=== PATIENT | male | born 1950 | race Caucasian/White ===

== ENCOUNTER → 2018-10-30 | Outpatient (CLI) | payer MEDICARE | LOC: CARD 11:22 | PROVIDERS: ATTEND Family Medicine | DX: I42.0 Dilated cardiomyopathy (principal); I08.0 Rheumatic disorders of both mitral and aortic valves | CPT/HCPCS: 93306 ==

== ENCOUNTER 2018-12-08 18:57 | Emergency (ER) | payer MEDICARE ==
[~2018-12-08] VITALS: Ht 175.3 cm; Wt 81.6 kg
--- NOTE | 2018-12-08 19:12 | ED Integumentary General ---
General Stated Complaint: RT HAND SWELLING/ REDNESS Source: patient, spouse Exam Limitations: no limitations History of Present Illness Date Seen by Provider: December 08, 2018 Time Seen by Provider: 19:00 Initial Comments The patient presents to ER by private conveyance with his chief complaint last 2 days she's had progressively worsening pustules on his right hand dorsal side of his fourth and fifth digit proximal phalanges. He doesn't redness and swelling going into his hand. He also has another nodule in his armpit that has opened up pustule has a little bit of pain and swelling. He's been putting Prid on it and it is not getting better. He has not been on antibiotics. He went to urgent care today and they said he might need some IV antibiotics and sent him over to the emergency room. He's having no fevers chills shortness of breath nausea vomiting or diarrhea. Allergies and Home Medications Allergies Coded Allergies: No Known Drug Allergies (Unverified , 12/08/18) Patient Home Medication List Home Medication List Reviewed: Yes Review of Systems Review of Systems Constitutional: No chills, No fever, No malaise EENTM: No ear discharge, No ear pain Respiratory: No cough, No dyspnea on exertion Cardiovascular: No chest pain, No palpitations Gastrointestinal: No abdominal pain, No nausea, No vomiting Past Vbhhuoi-Mkfsug-Vykkxi Hx Patient Social History Alcohol Use: Denies Use Recreational Drug Use: No Smoking Status: Former Smoker Type Used: Smokeless Tobacco (pack-a-day) Recent Foreign Travel: No Contact w/Someone Who Travel: No Physical Exam Vital Signs Vital Signs - First Documented 12/08/18 19:13 Temp 98.1 Pulse 102 Resp 22 B/P (MAP) 118/84 (95) O2 Delivery Room Air Capillary Refill : General Appearance: WD/WN, no apparent distress HEENT: PERRL/EOMI, normal ENT inspection Cardiovascular: normal peripheral pulses, regular rate, rhythm, no edema Respiratory: no respiratory distress, no accessory muscle use Extremities: normal range of motion, non-tender, normal capillary refill Neurologic/Psychiatric: no motor/sensory deficits, alert, normal mood/affect, oriented x 3 Skin: other (to macerated, swollen erythematous mildly indurated wounds on the dorsum of the right hand fourth and fifth digit with possible fluctuance palpated underneath. There is a right axillary anterior nodule with Hernandez, pointing vesicle. About a 2 cm erythematous indurated base with some fluctuance.) Procedures/Interventions I&D #1: Site: anterior right axilla Blade Size: 15 I & D Procedure: betadine prep Progress Wound was cleaned thoroughly using Betadine and then infiltrated with 2 cc of 1% lidocaine without epinephrine. When the wound was determined to be numb we opened in a cross stubbs fashion broke up loculations and extruded about 1-2 cc of thick white purulence. Patient tolerated procedure well. I&D #2: Site: right hand fourth digit Blade Size: 15 I & D Procedure: betadine prep Progress Patient's wound was thoroughly soaked with Betadine and then infiltrated with 1 cc of 1% lidocaine without epinephrine. The wound was already deroofed after we cleaned the scab off and was explored with a probe but no purulence was seen. Only serosanguineous discharge. Progress/Results/Core Measures Results/Orders My Orders Orders - BRIAN MITCHELL Wound Culture (12/08/18 19:12) Hsv 1&2 Pcr (Blood/Fluid) (12/08/18 19:12) Lidocaine 1% Inj 20 Ml (Xylocaine 1% Inj (12/08/18 19:15) Ceftriaxone For Im Use (Rocephin For Im (12/08/18 19:45) Lidocaine 1% Inj 20 Ml (Xylocaine 1% Inj (12/08/18 19:45) Vital Signs/I&O 12/08/18 19:13 Temp 98.1 Pulse 102 Resp 22 B/P (MAP) 118/84 (95) O2 Delivery Room Air Progress Progress Note : Time: 19:10 Progress Note Looking at his hand it's hard to tell if this is herpetic mikel versus abscesses. The fact that there is erythema in the fingers and a little bit in the dorsum of the hand but none on the arm and a distal ureter lymph node and/or abscess in his right axilla make a current him some antibiotics, open and drain and dress his wounds. He is not really having significant pain. He is not diabetic. He requests that whatever pill we put him on something he can chew to swallow. He had heat stroke a few years ago and makes it hard for him to swallow tablets. Because of the widespread nature we'll go ahead and try and attempt to collect a culture of the axillary vesicle which has not ruptured yet and check for HSV 1 and 2. Departure Impression Primary Impression: Abscess of finger of right hand Additional Impression: Abscess of axilla, right Disposition: 01 HOME, SELF-CARE Condition: Stable Departure-Patient Inst. Decision time for Depature: 19:39 Referrals: SELFSONU MD (PCP/Family) Primary Care Physician Patient Instructions: Abscess Incision and Drainage (DC) Add. Discharge Instructions: The antibiotics we gave you tonight we'll cover you through tomorrow. Tomorrow morning you can start the Bactrim twice a day for the next week. Use warm compresses or heating pads to help the wounds and the pain. Use Tylenol 1000 mg in addition to ibuprofen 800 mg every 8 hours each. Next week we should have the results of the wound culture and herpes test. If this is a viral illness such as herpetic mikel than the antivirals will help. You may go ahead and start the antivirals twice a day for the next week. Scripts Sulfamethoxazole/Trimethoprim (Sulfamethoxazole-Tmp Susp 200MG/40MG/5ML) 473 Ml Oral.susp 160 MG PO BID for 7 Days, #300 ML 0 Refills DOSE IN TRIMETHOPRIM Prov: BRIAN MITCHELL 12/08/18 Acyclovir (Acyclovir) 200 Mg/5 Ml Oral.susp 800 MG PO BID for 7 Days, #300 ML 0 Refills Prov: BRIAN MITCHELL 12/08/18 BRIAN MITCHELL December 08, 2018 19:12
[2018-12-08] MEDS ORDERED: LIDOCAINE 1% INJ 20 ML 20 ML VIAL INJ ONE ×2 (19:15→19:45)
[2018-12-08] MEDS ORDERED: SULF473O9 PO (19:43)
[2018-12-08] MEDS ORDERED: ACYC200O4 PO (19:43)
[2018-12-08] MEDS ORDERED: cefTRIAXone 1,000 MG/2.86 ml vial (IM ONLY) IM ONE (19:45)
[2018-12-08 19:55] VITALS: BP 134/75
== END 2018-12-08 19:55 | disposition home or self-care (01) ==
LOC: EDUNIT# 18:57 → ER FS 18:59
DX: L02.511 Cutaneous abscess of right hand (principal); L02.411 Cutaneous abscess of right axilla; Z87.891 Personal history of nicotine dependence
CPT/HCPCS: 87070; 87077; 87186; 87205; 87254; 96372; 99284

== ENCOUNTER 2021-06-07 14:20 | Inpatient (IN) | payer MEDICARE ==
[~2021-06-07] VITALS: Ht 175 cm; Wt 81.3 kg
[~2021-06-07 14:20] MED LIST: ACYC200O4 PO; SULF473O9 PO
--- OUTSIDE RECORDS SUMMARY | 2021-06-07 14:26 | XMS REPORT | Clinical Summary ---
Author Author [facility] Organization [facility] Address Unknown Phone Unavailable Care Team Providers Care Bibliographic Services Specialist Name Role Phone PCP Unavailable Allergies Not on File Medications Not on file Active Problems Not on file Social History Date Tobacco Use Types Packs/Day Years Used Never Assessed Sex Assigned at Date Recorded Not on file Last Filed Vital Signs Not on file Plan of Treatment Health Maintenance Due Date Last Done Comments Hepatitis C Screen 1950 Td/Tdap# 1950 COVID-19 Vaccine (1) 1962 Colorectal Screening via 02/09/2000 Colonoscopy Zoster Vaccine# (1 of 2) 02/09/2000 Advance Care Plan 2015 Conversation Needed # Fall Risk Assessment # 2015 Pneumococcal Vaccine: 65+ 2015 Years (1 of 1 - PPSV23) Influenza Vaccine (#1) 2021 Results Not on filefrom Last 3 Months
[2021-06-07 14:59] LABS: BASOPHILS % (AUTO) 0 % (0-10); EOSINOPHILS # (AUTO) 0.2 10^3/uL (0.0-0.3); EOSINOPHILS % (AUTO) 3 % (0-10); HEMATOCRIT 39 % (40-54); HEMOGLOBIN 12.3 g/dL (13.3-17.7); LYMPHOCYTES # (AUTO) 1.3 10^3/uL (1.0-4.0); LYMPHOCYTES % (AUTO) 18 % (12-44); MEAN CORPUSCULAR HEMOGLOBIN 30 pg (25-34); MEAN CORPUSCULAR HGB CONC 32 g/dL (32-36); MEAN CORPUSCULAR VOLUME 95 fL (80-99); MEAN PLATELET VOLUME 10.9 fL (9.0-12.2); MONOCYTES # (AUTO) 0.6 10^3/uL (0.0-1.0); MONOCYTES % (AUTO) 8 % (0-12); NEUTROPHILS # (AUTO) 5.2 10^3/uL (1.8-7.8); NEUTROPHILS % (AUTO) 71 % (42-75); PLATELET COUNT 184 10^3/uL (130-400); WHITE BLOOD COUNT 7.3 10^3/uL (4.3-11.0)
[2021-06-07] MEDS ORDERED: NS IV 1000 ML 1,000 ML IV SCH (15:00)
[2021-06-07 15:05] LABS: POTASSIUM 4.1 MMOL/L (3.6-5.0)
[2021-06-07 15:06] LABS: CALCIUM 9.1 MG/DL (8.5-10.1)
[2021-06-07 15:07] LABS: INR 1.1 (0.8-1.4); PROTHROMBIN TIME PATIENT 14.6 SEC (12.2-14.7)
[2021-06-07 15:08] LABS: TOTAL PROTEIN 6.9 GM/DL (6.4-8.2)
[2021-06-07 15:09] LABS: BILIRUBIN,TOTAL 0.3 MG/DL (0.1-1.0)
[2021-06-07 15:11] LABS: CREATININE SERUM 1.99 MG/DL (0.60-1.30)
--- NOTE | 2021-06-07 15:35 | Diagnostic Imaging Report ---
EXAMINATION: Chest 1 view. HISTORY: Sepsis. COMPARISON: None available. FINDINGS: Heart size and pulmonary vasculature are upper limits of normal. Surgical changes from CABG. There are bibasilar interstitial opacities. No pleural effusion or pneumothorax. The osseous structures are intact. IMPRESSION: Bibasilar atelectasis or consolidation. Dictated by: Dictated on workstation # [id number]
--- NOTE | 2021-06-07 15:38 | ED Respiratory ---
General Chief Complaint: Respiratory Problems Stated Complaint: SOA,COUGH,FEVER,SORE THROAT,CHILLS Nursing Triage Note: Patient complains of SOA x's 5 days. Reports occurs mostly with activity. Denies covid exposure. Brought to room 10 via . Source: patient Exam Limitations: no limitations History of Present Illness Date Seen by Provider: Jun 07, 2021 Time Seen by Provider: 14:40 Initial Comments Patient is a 71-year-old male who presents to the emergency department today with a chief complaint of about 5 days of worsening shortness of breath, cough, sore throat and headache, some body aches and a little nausea. Patient is not Covid vaccinated. He does live with his is a diabetic and has had her Covid vaccination. He states he quit smoking in 2000. He does have a history of COPD and frequently has to use inhalers and a nebulizer. He states his cough is basically nonproductive. He does not recall that he has been around anybody with Covid symptoms. He denies earache, chest pain. He has a history of quadruple bypass. He denies abdominal pain, problems with dysuria, urgency or frequency. He denies diarrhea, black or bloody stool. He denies swelling in his legs. He is on Lasix and carvedilol and lisinopril. He himself is not diabetic. He lives with 2 of his children and he states that he believes that they are Covid vaccinated. He does not recall any fevers but states that he has been a little chilled. He has been using his inhalers and his nebulizer without relief of symptoms. All other review of systems reviewed and negative except as stated. Timing/Duration: other (5 days) Severity: moderate Modifying Factors: Improves With Albuterol Inhaler, Improves With Albuterol Nebulizer Associated Symptoms: cough, headache, shortness of breath, sore throat (with cough) Allergies and Home Medications Allergies Coded Allergies: No Known Drug Allergies (Unverified , 12/08/18) Patient Home Medication List Home Medication List Reviewed: Yes Acyclovir (Acyclovir) 200 Mg/5 Ml Oral.susp, 800 MG PO BID Prescribed by: BRIAN MITCHELL on 12/08/181942 Sulfamethoxazole/Trimethoprim (Sulfamethoxazole-Tmp Susp 200MG/40MG/5ML) 473 Ml Oral.susp, 160 MG PO BID Prescribed by: BRIAN MITCHELL on 12/08/181942 Review of Systems Review of Systems Constitutional: see HPI EENTM: throat pain (mild with cough) Respiratory: cough, dyspnea on exertion, orthopnea, short of breath, wheezing Cardiovascular: no symptoms reported Gastrointestinal: no symptoms reported Genitourinary: no symptoms reported Musculoskeletal: muscle cramps Skin: no symptoms reported All Other Systems Reviewed Negative Unless Noted: Yes Past Yrordtm-Eurlyc-Toifjk Hx Patient Social History Tobacco Use?: No Smoking Status: Former Smoker Substance use?: No Alcohol Use?: No Alcohol type: Beer, Hard Liquor Alcohol Frequency: Rarely Pt feels they are or have been: No Past Medical History Surgery/Hospitalization HX: 2020- 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 Physical Exam Vital Signs - First Documented 06/07/21 14:36 FiO2 98 Capillary Refill : Less Than 3 Seconds Height: 5'9.00" Weight: 180lbs. oz. 81.034595dz; 28.00 BMI Method:Stated General Appearance: WD/WN, no apparent distress Eyes: Bilateral Eye Normal Inspection, Bilateral Eye PERRL, Bilateral Eye EOMI HEENT: PERRL/EOMI, pharynx normal Neck: normal inspection Respiratory: wheezing (Diffuse inspiratory and expiratory wheezes noted, room air sats were 84 to 85% on room air on arrival), other (He is quite tachypneic in the low 30s) Cardiovascular: regular rate, rhythm (70's) Gastrointestinal: normal bowel sounds, non tender, soft Extremities: normal range of motion, non-tender, normal inspection, no pedal edema Neurologic/Psychiatric: alert, normal mood/affect, oriented x 3 Skin: normal color, warm/dry Focused Exam Lactate Level 06/07/21 14:40: Lactic Acid Level 0.85 Lactic Acid Level Laboratory Tests Test 06/07/21 14:40 Lactic Acid Level 0.85 MMOL/L (0.50-2.00) Progress/Results/Core Measures Suspected Sepsis Recent Fever Within 48 Hours: No Infection Criteria Present: Suspected New Infection New/Unexplained Altered Menta: No Within 3hrs of presentation: Admin fluids, Admin ABX, Blood cultures prior to ABX's, Lactate level SIRS Temperature: Pulse: 69 Respiratory Rate: 24 Laboratory Tests 06/07/21 14:40: White Blood Count 7.3 Blood Pressure 110 /56 Mean: 74 06/07/21 14:40: Lactic Acid Level 0.85 Laboratory Tests 06/07/21 14:40: Creatinine 1.99H, INR Comment 1.1, Platelet Count 184, Total Bilirubin 0.3 Results/Orders Lab Results Laboratory Tests Test 06/07/21 14:40 Range/Units White Blood Count 7.3 4.3-11.0 10^3/uL Red Blood Count 4.07 L 4.30-5.52 10^6/uL Hemoglobin 12.3 L 13.3-17.7 g/dL Hematocrit 39 L 40-54 % Mean Corpuscular Volume 95 80-99 fL Mean Corpuscular Hemoglobin 30 25-34 pg Mean Corpuscular Hemoglobin Concent 32 32-36 g/dL Red Cell Distribution Width 12.4 10.0-14.5 % Platelet Count 184 130-400 10^3/uL Mean Platelet Volume 10.9 9.0-12.2 fL Immature Granulocyte % (Auto) 0 % Neutrophils (%) (Auto) 71 42-75 % Lymphocytes (%) (Auto) 18 12-44 % Monocytes (%) (Auto) 8 0-12 % Eosinophils (%) (Auto) 3 0-10 % Basophils (%) (Auto) 0 0-10 % Neutrophils # (Auto) 5.2 1.8-7.8 10^3/uL Lymphocytes # (Auto) 1.3 1.0-4.0 10^3/uL Monocytes # (Auto) 0.6 0.0-1.0 10^3/uL Eosinophils # (Auto) 0.2 0.0-0.3 10^3/uL Basophils # (Auto) 0.0 0.0-0.1 10^3/uL Immature Granulocyte # (Auto) 0.0 0.0-0.1 10^3/uL Prothrombin Time 14.6 12.2-14.7 SEC INR Comment 1.1 0.8-1.4 Activated Partial Thromboplast Time 30 24-35 SEC Sodium Level 142 135-145 MMOL/L Potassium Level 4.1 3.6-5.0 MMOL/L Chloride Level 105 98-107 MMOL/L Carbon Dioxide Level 25 21-32 MMOL/L Anion Gap 12 5-14 MMOL/L Blood Urea Nitrogen 55 H 7-18 MG/DL Creatinine 1.99 H 0.60-1.30 MG/DL Estimat Glomerular Filtration Rate 33 BUN/Creatinine Ratio 28 Glucose Level 141 H 70-105 MG/DL Lactic Acid Level 0.85 0.50-2.00 MMOL/L Calcium Level 9.1 8.5-10.1 MG/DL Corrected Calcium 9.1 8.5-10.1 MG/DL Total Bilirubin 0.3 0.1-1.0 MG/DL Aspartate Amino Transf (AST/SGOT) 29 5-34 U/L Alanine Aminotransferase (ALT/SGPT) 19 0-55 U/L Alkaline Phosphatase 61 40-136 U/L C-Reactive Protein High Sensitivity 3.93 H 0.00-0.50 MG/DL Total Protein 6.9 6.4-8.2 GM/DL Albumin 4.0 3.2-4.5 GM/DL Procalcitonin 0.16 H <0.10 NG/ML SARS-CoV-2 RNA (RT-PCR) Not Detected Not Detecte My Orders Orders - HILLARY MEJIA MD Cbc With Automated Diff (06/07/21 14:52) Comprehensive Metabolic Panel (06/07/21 14:52) Blood Culture (06/07/21 14:52) Sputum Culture (06/07/21 14:52) Protime With Inr (06/07/21 14:52) Partial Thromboplastin Time (06/07/21 14:52) Chest 1 View, Ap/Pa Only (06/07/21 14:52) Ed Iv/Invasive Line Start (06/07/21 14:52) Ed Iv/Invasive Line Start (06/07/21 14:52) Vital Signs Adult Sepsis Patie Q15M (06/07/21 14:52) O2 (06/07/21 14:52) Remove Rings In Anticipation O (06/07/21 14:52) Lactic Acid Analyzer (06/07/21 14:52) Procalcitonin (Pct) (06/07/21 14:52) Hs C Reactive Protein (06/07/21 14:52) Covid 19 Inhouse Test (06/07/21 14:52) Ns Iv 1000 Ml (Sodium Chloride 0.9%) (06/07/21 15:00) Methylprednisolone Sod Succ (Solu-Medrol (06/07/21 15:45) Communication For Respiratory (06/07/21 15:46) Albuterol Pre-Mix Nebs (Rt) (Proventil (06/07/21 16:00) Svn Small Volume Nebulizer (06/07/21 15:46) Albuterol Pre-Mix Nebs (Rt) (Proventil (06/07/21 16:11) Cefepime Injection (Maxipime Injection) (06/07/21 17:15) Ed Admission (Communication) (06/07/21 17:04) Medications Given in ED Vital Signs/I&O 06/07/21 06/07/21 06/07/21 06/07/21 14:36 14:36 14:36 14:36 Temp 36.6 36.6 Pulse 69 69 Resp 22 24 B/P (MAP) 110/56 110/56 (74) Pulse Ox 98 84 98 O2 Delivery Nasal Cannula Nasal Cannula Room Air Nasal Cannula O2 Flow Rate 2.00 2.00 2.00 FiO2 98 06/08/21 00:00 Intake Total 1000 ml Balance 1000 ml Capillary Refill : Less Than 3 Seconds Blood Pressure Mean: 74 Progress Note #1: Time: 15:36 Progress Note Patient was given 4 puffs of his albuterol inhaler. He is maintaining sats at 97 on 2 L per nasal cannula. He demonstrates mild increased work of breathing overall. Respiratory rate down to 22. Covid test is still pending at this time. CBC looks normal. 1546 Covd Negative Progress Note #2: Time: 17:08 Progress Note Went in to reevaluate the patient after his hour-long albuterol treatment, waited about 20 minutes and turned down his oxygen to half a liter. Patient slowly sunk down to an oxygen saturation of 90 and increased respiratory rate up to 32-34. He was starting to feeling a little bit more distressed therefore his oxygen was bumped back up. I discussed the case with Dr. Villanueva, she recommends ABG and cefepime antibiotics, will admit. She will put in que'd orders. Plan of care communicated to the patient and his daughter who is at the bedside. All questions are sought and answered. Diagnostic Imaging Diagonstic Imaging: Xray Plain Films/CT/US/NM/MRI: chest Comments [facility]. [place], [place] NAME: RUBY OCHOA [facility] REC#: [id number] PT STATUS: REG ER : 1950 PHYSICIAN: HILLARY MEJIA MD ADMIT DATE: 06/07/21/ER Draft Date of Exam:06/07/21 CHEST 1 VIEW, AP/PA ONLY EXAMINATION: Chest 1 view. HISTORY: Sepsis. COMPARISON: None available. FINDINGS: Heart size and pulmonary vasculature are upper limits of normal. Surgical changes from CABG. There are bibasilar interstitial opacities. No pleural effusion or pneumothorax. The osseous structures are intact. IMPRESSION: Bibasilar atelectasis or consolidation. Dictated on workstation # [id number] Dict: 06/07/21 1530 Trans: 06/07/21 1535 [facility] [id number] Interpreted by: CHRISTOPHER BLACKMAN DO Electronically signed by: Critical Care Note Critical Care Start Time: 14:40 Stop Time: 16:00 Total Time (minutes) 40 minutes critical care time in the evaluation and management of this patient with respiratory distress and hypoxia. Time includes initial evaluation and treatment with supplemental oxygen, multiple breathing treatments and reevaluation's, review of his medical record, review and interpretation of laboratory studies, chest x-ray. Fluid replacement. Discussion with admitting provider. Departure Communication (Admissions) Time/Spoke to Admitting Phy: 17:05 Impression Primary Impression: Acute exacerbation of chronic obstructive pulmonary disease (COPD) Additional Impressions: Pneumonia Qualified Codes: J18.9 - Pneumonia, unspecified organism Hypoxia Disposition: ADMITTED INPATIENT Condition: Stable Admissions Decision to Admit Reason: Admit from ER (General) Decision to Admit/Date: Jun 07, 2021 Time/Decision to Admit Time: 17:08 Departure-Patient Inst. Referrals: SONU ESPINOSA MD (PCP/Family) Primary Care Physician HILLARY MEJIA MD Jun 07, 2021 15:37
[2021-06-07] MEDS ORDERED: methylPREDNISolone 125 MG (Solu-MEDROL) VIAL IVP ONE (15:45)
[2021-06-07] MEDS ORDERED: RT-ALBUTEROL SULF 2.5 MG/3 ML PRE-MIX VIAL INH ONE (16:00)
[2021-06-07] MEDS ORDERED: RT-ALBUTEROL SULF 2.5 MG/3 ML PRE-MIX VIAL ONE (16:11)
[2021-06-07] MEDS ORDERED: CEFEPIME INJECTION 2,000 MG in NS (IVPB) 50 ML IV ONE (17:15)
[2021-06-07] MEDS ORDERED: HYDROcodone/APAP 5 MG/325 MG (LORTAB) TAB PO PRN (18:00)
[2021-06-07] MEDS ORDERED: RT-ALBUTEROL/IPRATROPIUM 3 ML (DUONEB) VIAL INH SCH (18:00)
[2021-06-07] MEDS ORDERED: ONDANSETRON 4 MG/2 ML (SDV) Z0FRAN IVP PRN (18:00)
[2021-06-07] MEDS ORDERED: guaiFENesin/CODEINE (ROBITUSSIN AC) 10ML UDC PO PRN (18:00)
[2021-06-07] MEDS ORDERED: cloNIDine 0.1 MG (CATAPRES) TAB PO PRN (18:00)
[2021-06-07] MEDS ORDERED: CALCIUM CARBONATE 500 MG (TUMS) TAB.CHEW PO PRN (18:00)
[2021-06-07] MEDS ORDERED: LOPERAMIDE 2 MG (IMODIUM) TABLET PO PRN (18:00)
[2021-06-07] MEDS ORDERED: diphenhydrAMINE 25 MG TAB (BENADRYL) PO PRN (18:00)
[2021-06-07] MEDS ORDERED: ACETAMINOPHEN 500 MG TAB (TYLENOL) PO PRN (18:00)
[2021-06-07] MEDS ORDERED: MELATONIN 3 MG TABLET PO PRN (18:00)
[2021-06-07] MEDS ORDERED: DOCUSATE SODIUM 100 MG (COLACE) CAP PO PRN (18:00)
[2021-06-07] MEDS ORDERED: ONDANSETRON 4 MG (ZOFRAN) ORAL DISSOLVE TAB PO PRN (18:00)
[2021-06-07] MEDS ORDERED: ALPRAZolam 0.25 MG (XANAX) TAB PO PRN (18:00)
[2021-06-07 18:27] VITALS: BP 110/56
[2021-06-07] MEDS ORDERED: RT-ALBUTEROL SULF 2.5 MG/3 ML PRE-MIX VIAL INH PRN (18:45)
[2021-06-07] MEDS ORDERED: NS IV 1000 ML 1,000 ML ONE (18:47)
[2021-06-07] MEDS: NS IV 1000 ML 1,000 ML IV SCH (18:53)
[2021-06-07] MEDS ORDERED: RT-ALBUTEROL/IPRATROPIUM 3 ML (DUONEB) VIAL ONE (19:21)
[2021-06-07] MEDS: RT-ALBUTEROL/IPRATROPIUM 3 ML (DUONEB) VIAL INH SCH ×2 (19:24→22:47)
[2021-06-07 20:00] VITALS: BP 136/65
[2021-06-07] MEDS: SENNA W/DOCUSATE (SENOKOT S) TABLET PO SCH (20:31)
[2021-06-07] MEDS: polyethylene glycoL POWDER 17 GM (MIRALAX) PACK PO SCH (20:31)
[2021-06-07] MEDS: inSUlin ASPART (NovoLOG) 1 UNIT/0.01 ML (CHARGE PER UNIT) SC SCH (20:31)
[2021-06-07] MEDS ORDERED: CEFEPIME INJECTION 2,000 MG in NS (IVPB) 50 ML IV SCH (21:00)
[2021-06-07] MEDS: ENOXAPARIN 40 MG/0.4 ML (LOVENOX) SYR SC SCH (22:08)
[2021-06-07] MEDS: methylPREDNISolone 40 MG/ML (Solu-MEDROL) VIAL IV SCH (22:08)
[2021-06-08] MEDS: CEFEPIME 1,000 MG/NS 50 ML IVPB IV SCH ×6 (00:09→18:00)
[2021-06-08 00:10] VITALS: BP 129/65
[2021-06-08] MEDS: RT-ALBUTEROL/IPRATROPIUM 3 ML (DUONEB) VIAL INH SCH ×6 (01:59→21:18)
[2021-06-08 04:00] VITALS: BP 116/69
[2021-06-08] MEDS: methylPREDNISolone 40 MG/ML (Solu-MEDROL) VIAL IV SCH ×4 (04:56→21:28)
[2021-06-08] MEDS: inSUlin ASPART (NovoLOG) 1 UNIT/0.01 ML (CHARGE PER UNIT) SC SCH ×4 (04:56→21:25)
[2021-06-08 06:30] LABS: BASOPHILS % (AUTO) 0 % (0-10); EOSINOPHILS % (AUTO) 0 % (0-10); HEMATOCRIT 40 % (40-54); HEMOGLOBIN 12.3 g/dL (13.3-17.7); LYMPHOCYTES # (AUTO) 0.4 10^3/uL (1.0-4.0); LYMPHOCYTES % (AUTO) 8 % (12-44); MEAN CORPUSCULAR HEMOGLOBIN 30 pg (25-34); MEAN CORPUSCULAR HGB CONC 31 g/dL (32-36); MEAN CORPUSCULAR VOLUME 98 fL (80-99); MEAN PLATELET VOLUME 10.7 fL (9.0-12.2); MONOCYTES # (AUTO) 0.1 10^3/uL (0.0-1.0); MONOCYTES % (AUTO) 1 % (0-12); NEUTROPHILS # (AUTO) 4.3 10^3/uL (1.8-7.8); NEUTROPHILS % (AUTO) 90 % (42-75); PLATELET COUNT 168 10^3/uL (130-400); WHITE BLOOD COUNT 4.8 10^3/uL (4.3-11.0)
[2021-06-08 06:51] LABS: ALBUMIN 3.7 GM/DL (3.2-4.5); BILIRUBIN,TOTAL 0.3 MG/DL (0.1-1.0); CALCIUM 8.4 MG/DL (8.5-10.1); CREATININE SERUM 1.4 MG/DL (0.60-1.30); TOTAL PROTEIN 6.6 GM/DL (6.4-8.2)
[2021-06-08 06:57] LABS: LYMPHOCYTES % (MANUAL) 5 %; MONOCYTES % (MANUAL) 1 %; NEUTROPHILS % (MANUAL) 94 %; RBC MORPH NORMAL; TOXIC GRANULATION/VACUOLAZATIO 2+
[2021-06-08 06:59] LABS: POTASSIUM 5.1 MMOL/L (3.6-5.0)
[2021-06-08 08:00] VITALS: BP 114/61
[2021-06-08] MEDS: SENNA W/DOCUSATE (SENOKOT S) TABLET PO SCH ×2 (08:58→21:27)
[2021-06-08] MEDS: polyethylene glycoL POWDER 17 GM (MIRALAX) PACK PO SCH ×2 (08:58→21:27)
[2021-06-08] MEDS: NS IV 1000 ML 1,000 ML IV SCH (08:58)
--- NOTE | 2021-06-08 10:38 | Consultation-Cardiology ---
HPI-Cardiology Cardiology Consultation Date of Consultation 06/08/21 Date of Admission Time Seen by Provider: 10:32 Indication: CAD HPI Patient is a 71 y/o male, history of CAD, CHF, HTN, HLP, COPD,extobaccoism. Primary egg tester is Dr. Madera in [place]. Presented to the ER with complaints fever, productive cough and dyspnea for the past week. Dx with pneumonia and started on antibiotic and steroid. Denies any chest pain, reports dyspnea improving. Denies any dizziness or lightheadedness. Reports routinely follows with his egg tester and underwent echo within the last 6 months, and underwent stress test within the last year. Home Medications & Allergies Allergies: Coded Allergies: No Known Drug Allergies (Unverified , 12/08/18) Home Medication List Reviewed: Yes SBA-Dwopdd-Tjrbld Hx Patient Social History Marital Status: Employed/Student: retired Smoking Status: Former Smoker Type Used: Cigarettes, Smokeless Tobacco 2nd Hand Smoke Exposure: No Have you traveled recently?: No Alcohol Use?: Yes Past Medical History CAD, CHF, HTN, HLP Review of Systems-General Review of Systems Constitutional: see HPI, fever, malaise EENTM: see HPI, throat pain (mild with cough); No blurred vision, No double vision Respiratory: cough, dyspnea on exertion, orthopnea, short of breath, wheezing Cardiovascular: no symptoms reported, see HPI; No chest pain; Hx of Intervention; No syncope; vascular heart diseas Gastrointestinal: no symptoms reported Genitourinary: no symptoms reported Musculoskeletal: muscle cramps Skin: no symptoms reported All Other Systems Reviewed Negative Unless Noted: Yes Reviewed Test Results Reviewed Test Results Lab Laboratory Tests 06/07/21 14:40: White Blood Count 7.3, Red Blood Count 4.07L, Hemoglobin 12.3L, Hematocrit 39L, Mean Corpuscular Volume 95, Mean Corpuscular Hemoglobin 30, Mean Corpuscular Hemoglobin Concent 32, Red Cell Distribution Width 12.4, Platelet Count 184, Mean Platelet Volume 10.9, Immature Granulocyte % (Auto) 0, Neutrophils (%) (Auto) 71, Lymphocytes (%) (Auto) 18, Monocytes (%) (Auto) 8, Eosinophils (%) (Auto) 3, Basophils (%) (Auto) 0, Neutrophils # (Auto) 5.2, Lymphocytes # (Auto) 1.3, Monocytes # (Auto) 0.6, Eosinophils # (Auto) 0.2, Basophils # (Auto) 0.0, Immature Granulocyte # (Auto) 0.0, Prothrombin Time 14.6, INR Comment 1.1, Activated Partial Thromboplast Time 30, Sodium Level 142, Potassium Level 4.1, Chloride Level 105, Carbon Dioxide Level 25, Anion Gap 12, Blood Urea Nitrogen 55H, Creatinine 1.99H, Estimat Glomerular Filtration Rate 33, BUN/Creatinine Ratio 28, Glucose Level 141H, Lactic Acid Level 0.85, Calcium Level 9.1, Corrected Calcium 9.1, Total Bilirubin 0.3, Aspartate Amino Transf (AST/SGOT) 29, Alanine Aminotransferase (ALT/SGPT) 19, Alkaline Phosphatase 61, C-Reactive Protein High Sensitivity 3.93H, Total Protein 6.9, Albumin 4.0, Procalcitonin 0.16H, SARS-CoV-2 RNA (RT-PCR) Not Detected 06/07/21 20:15: Glucometer 129H 06/08/21 04:55: Glucometer 153H 06/08/21 06:20: White Blood Count 4.8, Red Blood Count 4.07L, Hemoglobin 12.3L, Hematocrit 40, M lefty Corpuscular Volume 98, Mean Corpuscular Hemoglobin 30, Mean Corpuscular Hemoglobin Concent 31L, Red Cell Distribution Width 12.4, Platelet Count 168, Mean Platelet Volume 10.7, Immature Granulocyte % (Auto) 1, Neutrophils (%) (Auto) 90H, Lymphocytes (%) (Auto) 8L, Monocytes (%) (Auto) 1, Eosinophils (%) (Auto) 0, Basophils (%) (Auto) 0, Neutrophils # (Auto) 4.3, Lymphocytes # (Auto) 0.4L, Monocytes # (Auto) 0.1, Eosinophils # (Auto) 0.0, Basophils # (Auto) 0.0, Immature Granulocyte # (Auto) 0.1, Sodium Level 144, Potassium Level 5.1H, Chloride Level 111H, Carbon Dioxide Level 24, Anion Gap 9, Blood Urea Nitrogen 42H, Creatinine 1.40H, Estimat Glomerular Filtration Rate 50, BUN/Creatinine Ratio 30, Glucose Level 145H, Calcium Level 8.4L, Corrected Calcium 8.6, Total Bilirubin 0.3, Aspartate Amino Transf (AST/SGOT) 23, Alanine Aminotransferase (ALT/SGPT) 19, Alkaline Phosphatase 53, Total Protein 6.6, Albumin 3.7, Neutrophils % (Manual) 94, Lymphocytes % (Manual) 5, Monocytes % (Manual) 1, Toxic Granulation 2+, Blood Morphology Comment NORMAL Physical Exam Physical Exam Vital Signs Vital Signs - First Documented 06/07/21 14:36 FiO2 98 Capillary Refill : Less Than 3 Seconds Height, Weight, BMI Height: 5'9.00" Weight: 180lbs. oz. 81.389423xz; 26.54 BMI Method:Stated General Appearance: No Apparent Distress, WD/WN Eyes: Bilateral Eye Normal Inspection, Bilateral Eye PERRL, Bilateral Eye EOMI HEENT: PERRL/EOMI, Normal ENT Inspection Neck: Non Tender, Supple Respiratory: Chest Non Tender, No Accessory Muscle Use, No Respiratory Distress, Crackles, Rhonci Cardiovascular: Regular Rate, Rhythm, No Edema, No Gallop Gastrointestinal: Normal Bowel Sounds, Non Tender, Soft Back: No CVA Tenderness A/P-Cardiology Admission Diagnosis Pneumonia AE COPD CAD CHF HTN Assessment/Plan Pneumonia, started on antibiotic and steroid, management per medical services. COPD, AE, improving, continue to monitor. CAD, [place] CAB[place] [address] Magana. Reports stent placement in 2003 to unknown artery. Primary egg tester is Dr. Madera in [facility]. Reports recent testing done within the last year. Clinically stable. I will evaluate echo, continue to monitor. CHF, likely ischemic cardiomyopathy, patient reports he was told he needs a defibrillator, has not been agreeable to it until recently. I will evaluate 2D Echo HTN, continue to monitor. HLP, maintained on statin as outpatient. Hyperkalemia, hold home lisinopril and continue to monitor. CRI, continue to monitor renal function. Extobaccoism Thank you for allowing us to participate in the management of Mr. Hurtado. This is Madisyn Kunz PA-C, as a scribe for Dr. Bryan. Patient was seen and evaluated with Madisyn, I examined the patient and interviewed him Patient appears to have pneumonia, still having shortness of breath Had extensive cardiac history, I will evaluate 2D echo Monitor blood pressure and lipids Restart home medications MADISYN OVIEDO Jun 08, 2021 10:38 AYSHA BRYAN MD Jun 08, 2021 12:13
[2021-06-08] MEDS ORDERED: ASPI-999 PO (11:15)
[2021-06-08] MEDS ORDERED: CARV12.53 PO (11:15)
[2021-06-08] MEDS ORDERED: FLUT12AE6 PO (11:15)
[2021-06-08] MEDS ORDERED: IPRA3AMP31 PO (11:15)
[2021-06-08] MEDS ORDERED: LISI5TAB20 PO (11:15)
[2021-06-08] MEDS ORDERED: SIMV80TA21 PO (11:15)
[2021-06-08] MEDS ORDERED: FURO40TA4 PO (11:15)
[2021-06-08] MEDS ORDERED: RT-ALBUINH INH (11:16)
[2021-06-08] MEDS ORDERED: GUAI180L12 PO (11:17)
--- NOTE | 2021-06-08 11:55 | History & Physical-Hospitalist ---
TRINO SCOTT 06/08/21 1155: History of Present Illness HPI/Chief Complaint CC: SOB HPI: Mr. Hurtado is a 71 year old male with a PMHx of COPD, CVA, PR, coronary stenting, quadruple bypass, and skin cancer who presented to the ED yesterday, 07 June with a chief complaint of SOB that started last Tuesday and got worse over 5 days. He reports that his chest feels tight particularly on his left side. He reports associated coughing and chest pain secondary to his cough. He says nothing made his symptoms any better or any worse. He says he has pain only when he coughs. He denies radiation of the pain. He says his symptoms tend to be worse during the evening. He rates the severity of his symptoms as a 7/10. He reports a similar COPD exacerbation 3 years ago where he was diagnosed with pneumonia. Imaging shows bibasilar atelectasis with consolidation. Patient is not Covid vaccinated. Source: patient Date Seen 06/08/21 Time Seen by a Provider: 08:29 Attending Physician Myesha Woodson DO PCP Self,Daniel BLAND Referring Physician Date of Admission Jun 07, 2021 at 17:05 Home Medications & Allergies Home Medications Reviewed patient Home Medication Reconciliation performed by pharmacy medication reconciliations non destructive testing technician and/or nursing. Patients Allergies have been reviewed. Allergies Allergies Coded Allergies No Known Drug Allergies (Unverified12/08/18) Past Vualrgi-Rtyimd-Gqoaxp Hx Patient Social History Employed/Student: retired Tobacco Use?: Yes Tobacco type used: Cigarettes Smoking Status: Former Smoker (Quit in 2000. Smoked 2 PPD for 42 years ago) Smokeless type used: Chew Smokeless Tobacco Frequency: Current Everyday User (2 packs per day) Use of E-Cig and/or Vaping dev: No Substance use?: No Alcohol Use?: Yes Alcohol type: Beer, Hard Liquor Alcohol Frequency: Rarely Pt feels they are or have been: No Current Status Advance Directives: No Communicates: Verbally Primary Language: Nepali Preferred Spoken Language: Nepali Is interpretation needed?: No Sensory deficits: Vision impairment Implanted or Applied Medical D: None Past Medical History Surgeries: Cardiac (h/o quadruple bypass), Ear Surgery (Skin cancer removal from Left ear "1-2 year ago") Pneumonia, COPD Coronary Artery Disease (h/o coronary stenting), Heart Attack Skin Did You Recieve Any Treatments: Yes What Type of Treatment Did You: Surgical Intervention Family Medical History Heart Disease (Brother), CVA (Mother) Review of Systems Constitutional: No chills, No fever; other (Fatigue) Respiratory: cough, short of breath Cardiovascular: chest pain (2/2 cough, not cardiac in nature); No palpitations Gastrointestinal: No abdominal pain, No nausea, No vomiting Psychiatric/Neurological: Denies Headache, Denies Numbness Physical Exam Physical Exam Vital Signs Vital Signs - First Documented 06/07/21 14:36 FiO2 98 Capillary Refill : Less Than 3 Seconds Height, Weight, BMI Height: 5'9.00" Weight: 180lbs. oz. 81.080164zb; 26.54 BMI Method:Stated General Appearance: No Apparent Distress, WD/WN HEENT: PERRL/EOMI, Moist Mucous Membranes; No Scleral Icterus (L), No Scleral Icterus (R) Neck: Normal Inspection, Non Tender; No Lymphadenopathy (L), No Lymphadenopathy (R) Respiratory: Chest Non Tender (Not tender to palpation. Patient reports pain with coughing), No Accessory Muscle Use, No Respiratory Distress, Wheezing (B/L upper and lower lobes) Cardiovascular: Regular Rate, Rhythm, No Murmur, Normal Peripheral Pulses Gastrointestinal: Normal Bowel Sounds, Non Tender, Other (Abdomen very firm but nontender) Extremity: Normal Capillary Refill, Normal Inspection, Non Tender, No Pedal Edema Neurologic/Psychiatric: Alert, Oriented x3, Normal Mood/Affect, dressmaker or tailor II-XII Norm as Tested, Other (Tremor in left hand. Patient reports having it since he was 6 years old) Skin: Normal Color, Warm/Dry Lymphatic: No Adenopathy (Head and neck) Results Results/Procedures Labs Laboratory Tests 06/07/21 14:40 06/08/21 06:20 Patient resulted labs reviewed. Assessment/Plan Admission Diagnosis Assessment Acute exacerbation of COPD Pneumonia h/o Cardiac problems - Stenting - Bypass - Patient follows with cardiology in [place]. Dr. Fredis Walden. h/o CVA Elevated BUN/Cr - Trending downward Plan IV cefepime Methylprednisolone Oxygen via NC as needed Cardiology consulted Encourage ambulation and ICS MYESHA WOODSON DO 06/09/21 0603: History of Present Illness HPI/Chief Complaint CC: SOB HPI: This is a 71yoWM who presents to the ER with SOB found to have exacerbation of COPD and hypoxia. IV fluids are currently running so I will hep lock those and consult Dr. Bryan due to hx of bypass. Creatinine is 1.99 and Potassium is 5.1. Tolerating antibiotics. Currently on 4 liters of oxygen. Source: patient Past Luaelwf-Ehcwtx-Pcuadn Hx Patient Social History Marrital Status: Employed/Student: retired Smoking Status: Former Smoker (Quit in 2000. Smoked 2 PPD for 42 years ago) Smokeless Tobacco Frequency: Current Everyday User (2 packs per day) Past Medical History Surgeries: CABG Coronary Artery Disease (h/o coronary stenting), Heart Attack Renal Failure Review of Systems Constitutional: see HPI, weakness EENTM: no symptoms reported Respiratory: dyspnea on exertion, short of breath Cardiovascular: no symptoms reported Gastrointestinal: no symptoms reported Genitourinary: no symptoms reported Musculoskeletal: no symptoms reported Skin: no symptoms reported Psychiatric/Neurological: No Symptoms Reported All Other Systems Reviewed Negative Unless Noted: Yes Physical Exam Physical Exam General Appearance: No Apparent Distress, Chronically ill Eyes: Right Eye Normal Inspection, Right Eye PERRL HEENT: PERRL/EOMI, Normal ENT Inspection, Pharynx Normal, Moist Mucous M embranes Neck: Full Range of Motion, Normal Inspection, Non Tender Respiratory: Chest Non Tender, No Respiratory Distress, Accessory Muscle Use, Crackles, Decreased Breath Sounds, Wheezing (B/L upper and lower lobes) Cardiovascular: Regular Rate, Rhythm, No Edema, No Gallop, No JVD, No Murmur, Normal Peripheral Pulses Gastrointestinal: Normal Bowel Sounds, No Organomegaly, No Pulsatile Mass, Non Tender, Soft Back: Normal Inspection, No CVA Tenderness, No Vertebral Tenderness Extremity: Normal Capillary Refill, Normal Inspection, Normal Range of Motion, Non Tender, No Calf Tenderness, No Pedal Edema Neurologic/Psychiatric: Alert, Oriented x3, No Motor/Sensory Deficits, Normal Mood/Affect Skin: Normal Color, Warm/Dry Lymphatic: No Adenopathy Assessment/Plan Admission Diagnosis Assessment: Acute hypoxic respiratory insufficiency Exacerbation of COPD Former smoker Bronchitis CAD Plan: IV steroids Oxygen Hep-Lock IV fluid IV antibiotics Admission Status: Inpatient Order (span 2 midnights) Reason for Inpatient Admission: Respiratory insufficiency Supervisory-Addendum Brief Verification & Attestation Participated in pt care: history, MDM, physical Personally performed: exam, history, MDM, supervision of care Care discussed with: Medical Student Procedures: n/a Results interpretation: Verified all documentation Verification and Attestation of Medical Student E/M Service A medical student performed and documented this service in my presence. I r eviewed and verified all information documented by the medical student and made modifications to such information, when appropriate. I personally performed the physical exam and medical decision making. Myesha Woodson, Jun 09, 2021,06:03 TRINO SCOTT Jun 08, 2021 11:55 MYESHA WOODSON DO Jun 09, 2021 06:03
[2021-06-08 12:00] VITALS: BP 121/69
[2021-06-08 16:09] VITALS: BP 109/54
[2021-06-08 20:03] VITALS: BP 114/50
[2021-06-08] MEDS: ENOXAPARIN 40 MG/0.4 ML (LOVENOX) SYR SC SCH (21:27)
[2021-06-08] MEDS ORDERED: DEXTROMETHORPHAN PO PRN (21:45)
[2021-06-08] MEDS ORDERED: [UNRECOGNIZED DRUG - OTHER] PO PRN (21:45)
[2021-06-08] MEDS ORDERED: GUAIFEN PO PRN (21:45)
[2021-06-08] MEDS ORDERED: FUROSEMIDE 20 MG (LASIX) TAB PO SCH (23:00)
[2021-06-08] MEDS ORDERED: RT--FLUTICASONE/SALMETEROL 232-14 (AIRDUO RespiCLICK) IH PRN (23:15)
[2021-06-09] VITALS: BP 105/52
[2021-06-09] MEDS: CEFEPIME 1,000 MG/NS 50 ML IVPB IV SCH ×4 (00:09→08:51)
[2021-06-09] MEDS: RT-ALBUTEROL/IPRATROPIUM 3 ML (DUONEB) VIAL INH SCH ×3 (02:16→11:12)
[2021-06-09] MEDS: methylPREDNISolone 40 MG/ML (Solu-MEDROL) VIAL IV SCH ×2 (04:34→08:50)
[2021-06-09 05:00] VITALS: BP 111/54
[2021-06-09] MEDS: inSUlin ASPART (NovoLOG) 1 UNIT/0.01 ML (CHARGE PER UNIT) SC SCH (05:41)
[2021-06-09 05:49] LABS: BASOPHILS % (AUTO) 0 % (0-10); EOSINOPHILS % (AUTO) 0 % (0-10); HEMATOCRIT 35 % (40-54); HEMOGLOBIN 11.3 g/dL (13.3-17.7); LYMPHOCYTES # (AUTO) 0.6 10^3/uL (1.0-4.0); LYMPHOCYTES % (AUTO) 5 % (12-44); MEAN CORPUSCULAR HEMOGLOBIN 31 pg (25-34); MEAN CORPUSCULAR HGB CONC 32 g/dL (32-36); MEAN CORPUSCULAR VOLUME 96 fL (80-99); MEAN PLATELET VOLUME 11.4 fL (9.0-12.2); MONOCYTES # (AUTO) 0.3 10^3/uL (0.0-1.0); MONOCYTES % (AUTO) 3 % (0-12); NEUTROPHILS # (AUTO) 11.1 10^3/uL (1.8-7.8); NEUTROPHILS % (AUTO) 92 % (42-75); PLATELET COUNT 169 10^3/uL (130-400)
[2021-06-09 06:14] LABS: ALBUMIN 3.6 GM/DL (3.2-4.5)
[2021-06-09 06:15] LABS: POTASSIUM 4.7 MMOL/L (3.6-5.0)
[2021-06-09 06:16] LABS: CALCIUM 8.4 MG/DL (8.5-10.1)
[2021-06-09 06:17] LABS: TOTAL PROTEIN 6.1 GM/DL (6.4-8.2)
[2021-06-09 06:19] LABS: BILIRUBIN,TOTAL 0.2 MG/DL (0.1-1.0)
[2021-06-09 06:20] LABS: CREATININE SERUM 1.28 MG/DL (0.60-1.30)
[2021-06-09] MEDS ORDERED: FUROSEMIDE 20 MG (LASIX) TAB PO SCH (07:00)
[2021-06-09] MEDS: polyethylene glycoL POWDER 17 GM (MIRALAX) PACK PO SCH (08:18)
[2021-06-09] MEDS: SENNA W/DOCUSATE (SENOKOT S) TABLET PO SCH (08:19)
[2021-06-09 08:23] VITALS: BP 122/50
--- NOTE | 2021-06-09 08:44 | Cardiology Progress Note ---
Subjective Date Seen by Provider: Jun 09, 2021 Time Seen by Provider: 08:41 Subjective/Events-last exam Patient is sitting up at bedside. Denies chest pain, reports dypsnea slowly improving, continues to have some wheezing. Focused Exam Lactate Level 06/07/21 14:40: Lactic Acid Level 0.85 Objective-Cardiology Exam Last Set of Vital Signs Vital Signs 06/08/21 06/09/21 06/09/21 08:00 05:00 08:23 Temp 36.2 Pulse 77 Resp 18 B/P (MAP) 122/50 (74) Pulse Ox 93 O2 Delivery Room Air O2 Flow Rate 1.00 FiO2 98 I&O Intake and Output 06/09/21 00:00 Intake Total 2540 ml Balance 2540 ml Intake Oral 1540 ml IV Total 1000 ml # Voids 11 # Bowel Movements 1 General: Alert, Oriented X3, Cooperative HEENT: Atraumatic, PERRLA Neck: Supple, No JVD, No Thyromegaly Lungs: Normal Air Movement, Other (Wheezing) Heart: Regular Rate, Normal S1, Normal S2, No Murmurs Abdomen: Normal Bowel Sounds, Soft Extremities: No Edema Skin: No Rashes, No Significant Lesion Psych/Mental Status: Mental Status NL, Mood NL Results Lab Laboratory Tests 06/09/21 05:16 A/P-Cardiology Admission Diagnosis Pneumonia AE COPD CAD CHF HTN Assessment/Plan Pneumonia, started on antibiotic and steroid, management per medical services. COPD, AE, improving, continue to monitor. CAD, history [place] CAB[place] [address] Magana. Reports stent placement in 2003 to unknown artery. Primary retort or condenser press operator is Dr. Madera in [facility]. Reports recent testing done within the last year. Clinically stable. I will evaluate echo, continue to monitor. CHF, likely ischemic cardiomyopathy, patient reports he was told he needs a defibrillator, 2D Echo done showing EF 25-30%, patient reports this is baseline for him, will need f/u with his retort or condenser press operator as outpatient. Maintained on PALMA-I, beta romulo, lasix. HTN, continue to monitor. HLP, maintained on statin as outpatient. Hyperkalemia, hold home lisinopril and continue to monitor. CRI, continue to monitor renal function. Extobaccoism LESLI OVIEDO Jun 09, 2021 08:44
[2021-06-09] MEDS ORDERED: ASPIRIN 81 MG CHEW (CHILDREN'S ASA) PO SCH (09:00)
[2021-06-09] MEDS ORDERED: lisINopril 5 MG (PRINIVIL) TABLET PO SCH (09:00)
--- NOTE | 2021-06-09 10:03 | Diagnostic Imaging Report ---
INDICATION: Pneumonia with shortness of breath. Comparison with 06/07/2021. FINDINGS: PA and lateral views. Comparison with previous portable exam shows clearing of the left lower lung. The left cardiac border is more distinct today. Continues to be mild blunting of the left costophrenic angle. Left upper lung shows nodules consistent with granuloma though no acute infiltrate. Right lung shows clearing of infiltrate with granuloma present. Right costophrenic angle is sharp. Median sternotomy changes are again noted. IMPRESSION: Postoperative residue. There is decreasing infiltrate and decreased pleural effusion on the left. Right lung is now clear. Dictated by: Dictated on workstation # [id number]
[2021-06-09] MEDS ORDERED: PRED10TA22 PO (10:50)
[2021-06-09] MEDS ORDERED: CEFD300C3 PO (10:50)
--- NOTE | 2021-06-09 10:50 | Discharge Summary ---
Discharge Summary Hospital Course Was the Problem List Reviewed?: Yes Problems/Dx: (1) Acute exacerbation of chronic obstructive pulmonary disease (COPD) Status: Acute (2) Pneumonia Status: Acute Qualifiers: Qualified Codes: J18.9 - Pneumonia, unspecified organism (3) Hypoxia Hospital Course Date of Admission: Jun 07, 2021 at 17:05 Admission Diagnosis : Family Physician/Provider: Daniel Somers MD Date of Discharge: 06/09/21 Discharge Diagnosis: Hypoxia, respiratory distress, pneumonia, acute exacerbation of COPD, former smoker Hospital Course: Hospital course: Pt had an uneventful hospital course for admission for acute exacerbation of COPD with bacterial bronchitis and requiring IV steroids and IV antibiotics. He resolved the supplemental oxygen requirement and was deemed stable for discharge although his lungs remained coarse. He was up Ad-barrett with no SOB. He will be placed on oral antibiotics and steroids. Labs and Pending Lab Test: Laboratory Tests 06/08/21 11:47: Glucometer 229H 06/08/21 15:58: Glucometer 149H 06/08/21 20:45: Glucometer 158H 06/09/21 05:16: White Blood Count 12.0H, Red Blood Count 3.69L, Hemoglobin 11.3L, Hematocrit 35L , Mean Corpuscular Volume 96, Mean Corpuscular Hemoglobin 31, Mean Corpuscular Hemoglobin Concent 32, Red Cell Distribution Width 12.5, Platelet Count 169, Mean Platelet Volume 11.4, Immature Granulocyte % (Auto) 1, Neutrophils (%) (Auto) 92H, Lymphocytes (%) (Auto) 5L, Monocytes (%) (Auto) 3, Eosinophils (%) (Auto) 0, Basophils (%) (Auto) 0, Neutrophils # (Auto) 11.1H, Lymphocytes # (Auto) 0.6L, Monocytes # (Auto) 0.3, Eosinophils # (Auto) 0.0, Basophils # (Auto) 0.0, Immature Granulocyte # (Auto) 0.1, Sodium Level 143, Potassium Level 4.7, Chloride Level 113H, Carbon Dioxide Level 21, Anion Gap 9, Blood Urea Nitrogen 37H, Creatinine 1.28, Estimat Glomerular Filtration Rate 55, BUN/Creatinine Ratio 29, Glucose Level 149H, Calcium Level 8.4L, Corrected Calcium 8.7, Total Bilirubin 0.2, Aspartate Amino Transf (AST/SGOT) 20, Alanine Aminotransferase (ALT/SGPT) 18, Alkaline Phosphatase 54, Total Protein 6.1L, Albumin 3.6 06/09/21 05:36: Glucometer 146H Microbiology 06/07/21 Blood Culture - Preliminary, Resulted No growth Home Meds Active Reported Mucinex Fast-Max Congest-Cough (Guaifen/Dextromethorphan/PE) 180 Ml Liquid 180 Ml PO DAILY PRN Ventolin Hfa (Albuterol Sulfate) 1 Puff Puff 1 Puff INH Q4H 1 PUFF = 90 MCG Aspirin 81 Mg Tab.chew 81 Mg PO DAILY Advair Hfa 230-21 Mcg Inhaler (Fluticasone/Salmeterol) 12 Gm Hfa.aer.ad 1 Puff PO TID PRN Simvastatin 80 Mg Tablet 80 Mg PO HS Furosemide 40 Mg Tablet 20 Mg PO Q48H TAKES 1/2 TABLET Lisinopril 5 Mg Tablet 5 Mg PO DAILY Carvedilol 12.5 Mg Tablet 12.5 Mg PO BID Iprat-Albut 0.5-3(2.5) mg/3 ml (Ipratropium/Albuterol Sulfate) 3 Ml Ampul.neb 1 Vial PO Q6H PRN Assessment/Pt Instructions PCP in 1 week Discharge Planning: <30 minutes discharge planning Discharge Instructions Discharge Diet: No Restrictions Activity as Tolerated: Yes Discharge Physical Examination Vital Signs Vital Signs Date Time Temp Pulse Resp B/P (MAP) Pulse Ox O2 Delivery O2 Flow Rate FiO2 06/09/21 08:23 36.2 77 18 122/50 (74) 93 Room Air 06/09/21 05:00 1.00 06/08/21 08:00 98 General Appearance: No Apparent Distress, WD/WN, Chronically ill Respiratory: Crackles, Wheezing Cardiovascular: Regular Rate, Rhythm Neurologic/Psychiatric: Alert, Oriented x3, No Motor/Sensory Deficits, Normal Mood/Affect Allergies: Coded Allergies: No Known Drug Allergies (Unverified , 12/08/18) Discharge Summary Date of Admission Jun 07, 2021 at 17:05 Date of Discharge Discharge Date: Jun 09, 2021 Admission Diagnosis Assessment: Acute hypoxic respiratory insufficiency Exacerbation of COPD Former smoker Bronchitis CAD Plan: IV steroids Oxygen Hep-Lock IV fluid IV antibiotics BITA WOODSON DO Jun 09, 2021 10:50
[2021-06-09 11:09] VITALS: BP 122/67
[2021-06-09 11:16] VITALS: BP 122/67
--- NOTE | 2021-06-09 11:55 | Progress Note ---
TRINO SCOTT 06/09/21 1155: Progress Note Mr. Hurtado is a 71 year old male with a PMHx of COPD, CVA, NC, coronary stenting, quadruple bypass, and skin cancer who presented to the ED on 07 June with a chief complaint of SOB that started last Tuesday and got worse over 5 days. He reported that his chest felt tight particularly on his left side. He reported associated coughing and chest pain secondary to his cough. He said nothing made his symptoms any better or any worse. He said he has pain only when he coughs. He said his symptoms tend to be worse during the evening. He rated the severity of his symptoms as a 7/10. He reported a similar COPD exacerbation 3 years ago where he was diagnosed with pneumonia. Imaging showed bibasilar atelectasis with consolidation. Patient is not Covid vaccinated. His was a sick contact and was hospitalized for the same issue at the same time. During his hospital stay he was treated with cefepime and methylprednisolone and his symptoms have quickly improved. He reported feeling much better this morning, had no complaints, and was not requiring oxygen. He was walking around and talking with his this morning. The plan is to discharge him home today. MYESHA WOODSON DO 06/10/21 0548: Supervisory-Addendum Brief Verification & Attestation Participated in pt care: history, MDM, physical Personally performed: exam, history, MDM, supervision of care Care discussed with: Medical Student Procedures: n/a Results interpretation: Verified all documentation Verification and Attestation of Medical Student E/M Service A medical student performed and documented this service in my presence. I reviewed and verified all information documented by the medical student and made modifications to such information, when appropriate. I personally performed the physical exam and medical decision making. Myesha Woodson, Jun 10, 2021,05:48 TRINO SCOTT Jun 09, 2021 11:55 MYESHA WOODSON DO Jun 10, 2021 05:48
[2021-06-09] MEDS ORDERED: SIMvastatin 40 MG (ZOCOR) TAB PO SCH (21:00)
== END 2021-06-09 11:50 | disposition home or self-care (01) | DRG 190 ==
LOC: EDUNIT# 14:20 → ER 14:23 → 4TH 17:05
PROVIDERS: ADMIT Internal Medicine; ATTEND Internal Medicine
DX: J44.1 Chronic obstructive pulmonary disease with (acute) exacerbation (principal); J18.9 Pneumonia, unspecified organism; I13.0 Hypertensive heart and chronic kidney disease with heart failure and stage 1 through stage 4 chronic kidney disease, or unspecified chronic kidney disease; J44.0 Chronic obstructive pulmonary disease with (acute) lower respiratory infection; J20.9 Acute bronchitis, unspecified; R09.02 Hypoxemia; R06.89 Other abnormalities of breathing; I25.10 Atherosclerotic heart disease of native coronary artery without angina pectoris; I50.9 Heart failure, unspecified; Z20.822 Contact with and (suspected) exposure to COVID-19; E78.5 Hyperlipidemia, unspecified; I25.5 Ischemic cardiomyopathy; E87.5 Hyperkalemia; N18.9 Chronic kidney disease, unspecified; R06.03 Acute respiratory distress; Z87.891 Personal history of nicotine dependence; Z95.1 Presence of aortocoronary bypass graft; Z95.5 Presence of coronary angioplasty implant and graft; I25.2 Old myocardial infarction; Z86.73 Personal history of transient ischemic attack (TIA), and cerebral infarction without residual deficits; Z85.828 Personal history of other malignant neoplasm of skin
CPT/HCPCS: 36415; 71045; 71046; 80053; 82947; 83605; 84145; 85007; 85025; 85027; 85610; 85730; 86141; 87040; 87636; 93306; 94640; 94760

== ENCOUNTER 2021-08-22 11:43 | Emergency (ER) | payer MEDICARE ==
[~2021-08-22] VITALS: Ht 175 cm; Wt 81.3 kg
[~2021-08-22 11:43] MED LIST changes: +ASPI-999 PO; +CARV12.53 PO; +CEFD300C3 PO; +FLUT12AE6 PO; +FURO40TA4 PO; +GUAI180L12 PO; +IPRA3AMP31 PO; +LISI5TAB20 PO; +PRED10TA22 PO; +RT-ALBUINH INH; +SIMV80TA21 PO
[2021-08-22] MEDS ORDERED: ONDANSETRON 4 MG/2 ML (SDV) Z0FRAN IV STA (12:01)
--- NOTE | 2021-08-22 12:12 | ED General ---
General Chief Complaint: Abdominal/GI Problems Stated Complaint: DIARRHEA; VOMITING; GENERAL ACHING Source of Information: Patient History of Present Illness Date Seen by Provider: Aug 22, 2021 Time Seen by Provider: 11:46 Initial Comments 71-year-old male presenting with over a week nausea, vomiting, diarrhea. He states he has had some right-sided abdominal pain intermittently. He denies any blood in his stool or vomit. He denies any pain or burning with urination. He primarily vomits when he tries to drink or eat too fast. He has been drinking Gatorade. He does take a water pill as well. He has history of COPD and cardiac disease. Although he has been sick for a week he has not tried to get in with the clinic or see anyone and his doctor's office. He states that he has not been able to work all weekend so he came in today because he needed to go [place] work. He states that the diarrhea and vomiting has been slowing down. He has only had 2 episodes of diarrhea today. He denies fever, chills, cough more than usual. Timing/Duration: 1 Week Severity: Moderate Modifying Factors: worse with Eating Associated Systoms: No Chest Pain; Cough (chronic and no worse than usual); No Diaphoresis, No Fever/Chills, No Headaches, No Loss of Appetite, No Malaise; Nausea/Vomiting; No Rash, No Seizure; Shortness of Air (chronic and no worse than usual); No Syncope; Weakness (general) Allergies and Home Medications Allergies Coded Allergies: No Known Drug Allergies (Unverified , 12/08/18) Patient Home Medication List Home Medication List Reviewed: Yes Albuterol Sulfate (Ventolin Hfa) 1 Puff Puff, 1 PUFF INH Q4H, (Reported) Entered as Reported by: LANETTE DONALDSON on 06/08/21 1116 Aspirin (Aspirin) 81 Mg Tab.chew, 81 MG PO DAILY, (Reported) Entered as Reported by: LANETTE DONALDSON on 06/08/21 111 Carvedilol (Carvedilol) 12.5 Mg Tablet, 12.5 MG PO BID, (Reported) Entered as Reported by: LANETTE DONALDSON on 06/08/21 111 Cefdinir (Cefdinir) 300 Mg Capsule, 300 MG PO BID Prescribed by: BITA WOODSON on 06/09/21 1050 Fluticasone/Salmeterol (Advair Hfa 230-21 Mcg Inhaler) 12 Gm Hfa.aer.ad, 1 PUFF PO TID PRN for SHORTNESS OF BREATH, (Reported) Entered as Reported by: LANETTE DONALDSON on 06/08/21 111 Furosemide (Furosemide) 40 Mg Tablet, 20 MG PO Q48H, (Reported) Entered as Reported by: LANETTE DONALDSON on 06/08/21 111 Guaifen/Dextromethorphan/PE (Mucinex Fast-Max Congest-Cough) 180 Ml Liquid, 180 ML PO DAILY PRN for CONGESTION, (Reported) Entered as Reported by: LANETTE DONALDSON on 06/08/21 111 Ipratropium/Albuterol Sulfate (Iprat-Albut 0.5-3(2.5) mg/3 ml) 3 Ml Ampul.neb, 1 VIAL PO Q6H PRN for SHORTNESS OF BREATH, (Reported) Entered as Reported by: LANETTE DONALDSON on 06/08/21 111 Lisinopril (Lisinopril) 5 Mg Tablet, 5 MG PO DAILY, (Reported) Entered as Reported by: LANETTE DONALDSON on 06/08/21 111 Ondansetron (Ondansetron Odt) 4 Mg Tab.rapdis, 4 MG PO Q6H PRN for NAUSEA/VOMITING Prescribed by: HOMER HERNANDEZ on 08/22/21 1327 Prednisone (Prednisone) 10 Mg Tab.ds.pk, 10 MG PO DAILY Prescribed by: BITA WOODSON on 06/09/21 1050 Simvastatin (Simvastatin) 80 Mg Tablet, 80 MG PO HS, (Reported) Entered as Reported by: LANETTE DONALDSON on 06/08/21 111 Review of Systems Review of Systems Constitutional: No chills; dizziness (with standing); No fever EENTM: no symptoms reported Respiratory: see HPI Cardiovascular: no symptoms reported Gastrointestinal: see HPI Genitourinary: No dysuria, No frequency Musculoskeletal: muscle pain (general body aches) Skin: No rash Psychiatric/Neurological: Denies Headache Past Akgrdxa-Jdrien-Ggbvqb Hx Patient Social History Tobacco Use?: Yes Smoking Status: Former Smoker Use of E-Cig and/or Vaping dev: No Substance use?: No Alcohol Use?: Yes Alcohol type: Beer, Hard Liquor Alcohol Frequency: Once in a while Pt feels they are or have been: No Past Medical History Surgery/Hospitalization HX: 2020- 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 quadruple bypass stents COPD CHF CABG Pneumonia, COPD Coronary Artery Disease, Heart Attack Renal Failure Skin Did You Recieve Any Treatments: Yes What Type of Treatment Did You: Surgical Intervention Family Medical History Heart Disease, CVA Physical Exam Vital Signs Vital Signs - First Documented 08/22/21 11:48 Temp 37.3 Pulse 82 Resp 18 B/P (MAP) 103/60 (74) Pulse Ox 95 O2 Delivery Room Air Capillary Refill : Height, Weight, BMI Height: 5'9.00" Weight: 180lbs. oz. 81.407122lx; 26.54 BMI Method:Stated General Appearance: No Apparent Distress, WD/WN, Other (wearing hat and sunglasses) HEENT: Pharynx Normal Neck: Full Range of Motion, Normal Inspection, Non Tender, Supple Respiratory: Chest Non Tender, Lungs Clear, Normal Breath Sounds, No Accessory Muscle Use, No Respiratory Distress Cardiovascular: Regular Rate, Rhythm, Normal Peripheral Pulses Gastrointestinal: Normal Bowel Sounds, No Pulsatile Mass, Non Tender, Soft Rectal: Deferred Extremity: Normal Capillary Refill, Normal Inspection, No Pedal Edema Neurologic/Psychiatric: Alert, Oriented x3, healthcare science specialist II-XII Norm as Tested Skin: Normal Color, Warm/Dry Progress/Results/Core Measures Suspected Sepsis SIRS Temperature: Pulse: Respiratory Rate: Laboratory Tests 08/22/21 12:07: White Blood Count 3.9L Blood Pressure / Mean: Laboratory Tests 08/22/21 12:07: Creatinine 1.74H, INR Comment 1.0, Platelet Count 113L, Total Bilirubin 0.3 Results/Orders Lab Results Laboratory Tests Test 08/22/21 12:03 08/22/21 12:07 Range/Units White Blood Count 3.9 L 4.3-11.0 10^3/uL Red Blood Count 4.13 L 4.30-5.52 10^6/uL Hemoglobin 12.4 L 13.3-17.7 g/dL Hematocrit 38 L 40-54 % Mean Corpuscular Volume 93 80-99 fL Mean Corpuscular Hemoglobin 30 25-34 pg Mean Corpuscular Hemoglobin Concent 32 32-36 g/dL Red Cell Distribution Width 13.2 10.0-14.5 % Platelet Count 113 L 130-400 10^3/uL Mean Platelet Volume 11.6 9.0-12.2 fL Immature Granulocyte % (Auto) 1 % Neutrophils (%) (Auto) 68 42-75 % Lymphocytes (%) (Auto) 22 12-44 % Monocytes (%) (Auto) 9 0-12 % Eosinophils (%) (Auto) 0 0-10 % Basophils (%) (Auto) 0 0-10 % Neutrophils # (Auto) 2.6 1.8-7.8 X 10^3 Lymphocytes # (Auto) 0.9 L 1.0-4.0 X 10^3 Monocytes # (Auto) 0.4 0.0-1.0 X 10^3 Eosinophils # (Auto) 0.0 0.0-0.3 10^3/uL Basophils # (Auto) 0.0 0.0-0.1 10^3/uL Immature Granulocyte # (Auto) 0.0 0.0-0.1 10^3/uL Percent Immature Platelet Fraction 9.9 H 0.0-7.6 % Prothrombin Time 13.7 12.2-14.7 SEC INR Comment 1.0 0.8-1.4 Activated Partial Thromboplast Time 32 24-35 SEC Sodium Level 139 135-145 MMOL/L Potassium Level 4.6 3.6-5.0 MMOL/L Chloride Level 102 98-107 MMOL/L Carbon Dioxide Level 23 21-32 MMOL/L Anion Gap 14 5-14 MMOL/L Blood Urea Nitrogen 37 H 7-18 MG/DL Creatinine 1.74 H 0.60-1.30 MG/DL Estimat Glomerular Filtration Rate 41 BUN/Creatinine Ratio 21 Glucose Level 118 H 70-105 MG/DL Calcium Level 8.4 L 8.5-10.1 MG/DL Corrected Calcium 8.4 L 8.5-10.1 MG/DL Total Bilirubin 0.3 0.1-1.0 MG/DL Aspartate Amino Transf (AST/SGOT) 37 H 5-34 U/L Alanine Aminotransferase (ALT/SGPT) 18 0-55 U/L Alkaline Phosphatase 50 40-136 U/L Troponin I < 0.30 <0.30 NG/ML C-Reactive Protein 0.87 H <0.50 MG/DL Total Protein 6.4 6.4-8.2 GM/DL Albumin 4.0 3.2-4.5 GM/DL My Orders Orders - HOMER HERNANDEZ MD Monitor-Rhythm Ecg Trace Only (08/22/21 12:01) Ed Iv/Invasive Line Start (08/22/21 12:01) Cbc With Automated Diff (08/22/21 12:01) Comprehensive Metabolic Panel (08/22/21 12:) Crp Fs (08/22/21 12:) Troponin I Fs (08/22/21 12:) Protime With Inr (08/22/21 12:) Partial Thromboplastin Time (08/22/21 12:) Ekg Tracing (08/22/21 12:) Ns Iv 1000 Ml (Sodium Chloride 0.9%) (08/22/21 12:15) Ondansetron Injection (Zofran Injectio (08/22/21 12:01) Covid 19 Inhouse Test (08/22/21 12:01) Isolation Central Supply Req (08/22/21 12:01) Ct Abdomen/Pelvis Wo (08/22/21 12:01) Stool Culture (08/22/21 12:06) Fecal Wbc (08/22/21 12:06) C Difficile Ag + Toxin A/B. (08/22/21 12:06) Isolation Central Supply Req (08/22/21 12:06) Vital Signs/I&O 08/22/21 08/22/21 11:48 13:30 Temp 37.3 37.2 Pulse 82 78 Resp 18 16 B/P (MAP) 103/60 (74) 138/72 Pulse Ox 95 96 O2 Delivery Room Air Room Air Capillary Refill : Progress Note #1: Progress Note Obtain labs to evaluate his electrolytes and blood count. If he has diarrhea here we will send her for stool studies. CT scan of his abdomen and pelvis without contrast to evaluate the intermittent right flank pain as well as his nausea, vomiting, diarrhea x1 week. Covid swab to check for the virus as a potential source of his nausea vomiting and diarrhea. Give 1 L normal saline IV fluids for hydration, Zofran 4 mg IV x1 for nausea and vomiting. Progress Note #2: Progress Note Labs appear stable without acute significant abnormality on his CBC. His chemistry panel has elevated creatinine to 1.74. Previously he had been around 1.5. This along with him being a little bit dehydrated. Is CRP is slightly high. Awaiting CT scan of his abdomen and pelvis. Progress Note #3: Progress Note CT scan shows patchy areas in his lung bases concerning for possible Covid. No acute process in abdomen/pelvis to account for his complaint of intermittent right flank pain and n/v/d. Covid swab is pending but will take 1-2 days to get the results. Recommend quarantine until Covid result back, but he has already had 7 days of symptoms. Have him c heck back with clinic and try nausea medicine to help settle his stomach at home. Continue with pushing fluids to help with his renal insufficiency. Pt feels better after treatment and dizziness improved. Discharge on dissolving Zofran odt ECG Initial ECG Impression Date: Aug 22, 2021 Initial ECG Impression Time: 12:47 Initial ECG Rate: 71 Initial ECG Rhythm: Normal Sinus Initial ECG Comparisson: No Previous ECG Available Comment Normal sinus rhythm with a heart rate of 71 bpm. NE interval [address] elevation. There is artifact on the tracing. Ventricular bigeminy. QT interval 400 ms with a QTc interval 435 ms. No prior tracing available for comparison. Diagnostic Imaging Diagonstic Imaging: CT Plain Films/CT/US/NM/MRI: abdomen, pelvis Comments NAME: RUBY OCHOA [facility] REC#: [id number] PT STATUS: REG ER : 1950 PHYSICIAN: HOMER HERNANDEZ MD ADMIT DATE: 08/22/21/ER FS Draft Date of Exam:08/22/21 CT ABDOMEN/PELVIS WO PROCEDURE: CT abdomen and pelvis without contrast. TECHNIQUE: Multiple contiguous axial images were obtained through the abdomen and pelvis without the use of intravenous contrast. Auto Exposure Controls were utilized during the CT exam to meet ALARA standards for radiation dose reduction. INDICATION: Nausea, vomiting, diarrhea, and pain. COMPARISON: None available. FINDINGS: Patchy ground-glass and reticular opacities are identified within the lung bases, right greater than left. Tiny hiatal hernia. The unenhanced liver is unremarkable. The unenhanced spleen is unremarkable. The adrenal glands are unremarkable. The pancreas is unremarkable. The gallbladder is unremarkable. The unenhanced bilateral kidneys and ureters are unremarkable. Fusiform bilobed aneurysmal dilatation of the infrarenal abdominal aorta is present measuring up to 3.5 cm. The appendix is unremarkable. The prostate gland is enlarged. Small fat-containing right internal hernia. The urinary bladder is unremarkable. No bowel obstruction or pneumatosis. No significant adenopathy, free air, or free fluid within the abdomen or pelvis. Scattered osseous degenerative changes without acute osseous abnormality. IMPRESSION: Patchy ground-glass and reticular opacities within the right greater than left lung bases. This may relate to an infectious infiltrate or less likely atelectasis. Recommend correlation for COVID. Mild bilobed aneurysmal dilatation of the infrarenal abdominal aorta. The appendix is unremarkable. Dictated on workstation # [id number] Dict: 08/22/21 1238 Trans: 08/22/21 1311 [id number] Interpreted by: MARQUIS SAAVEDRA MD Electronically signed by: Reviewed: Reviewed by Me Departure Impression Primary Impression: Nausea vomiting and diarrhea Additional Impressions: Right flank pain Person under investigation for COVID-19 Renal insufficiency Dehydration Disposition: 01 HOME, SELF-CARE Condition: Stable Departure-Patient Inst. Decision time for Depature: 13:24 Referrals: SONU ESPINOSA MD (PCP/Family) Primary Care Physician Patient Instructions: Dehydration, Adult ED, Diarrhea, Adult ED, COVID-19 ED, COVID-19 Overview, Nausea and Vomiting, Adult ED Add. Discharge Instructions: Use the dissolving nausea tablets to help settle your stomach so you can drink and eat better. You should quarantine until you have your results from today's Covid test. This should come back in 1-2 days. Provided your symptoms are continuing to improve and you are wearing a mask and washing your hands well you could return to work on Tuesday. Check back with clinic if you have continued problems or more concerns. All discharge instructions reviewed with patient and/or family. Voiced understanding. Scripts Ondansetron (Ondansetron Odt) 4 Mg Tab.rapdis 4 MG PO Q6H PRN for NAUSEA/VOMITING for 3 Days, #12 TAB 0 Refills Prov: HOMER HERNANDEZ MD 08/22/21 Work/School Note: Work Release Form Date Seen in the Emergency Department: Aug 22, 2021 Return to Work: Aug 24, 2021 Restrictions: Return-No Vomiting(24hrs) HOMER HERNANDEZ MD Aug 22, 2021 12:12
[2021-08-22 12:15] LABS: HEMOGLOBIN 12.4 g/dL (13.3-17.7); MEAN CORPUSCULAR HEMOGLOBIN 30 pg (25-34); WHITE BLOOD COUNT 3.9 10^3/uL (4.3-11.0)
[2021-08-22] MEDS ORDERED: NS IV 1000 ML 1,000 ML IV SCH (12:15)
[2021-08-22 12:16] LABS: BASOPHILS % (AUTO) 0 % (0-10); EOSINOPHILS % (AUTO) 0 % (0-10); HEMATOCRIT 38 % (40-54); LYMPHOCYTES # (AUTO) 0.9 X 10^3 (1.0-4.0); LYMPHOCYTES % (AUTO) 22 % (12-44); MEAN CORPUSCULAR HGB CONC 32 g/dL (32-36); MEAN CORPUSCULAR VOLUME 93 fL (80-99); MEAN PLATELET VOLUME 11.6 fL (9.0-12.2); MONOCYTES # (AUTO) 0.4 X 10^3 (0.0-1.0); MONOCYTES % (AUTO) 9 % (0-12); NEUTROPHILS # (AUTO) 2.6 X 10^3 (1.8-7.8); NEUTROPHILS % (AUTO) 68 % (42-75); PLATELET COUNT 113 10^3/uL (130-400)
[2021-08-22 12:27] LABS: PROTHROMBIN TIME PATIENT 13.7 SEC (12.2-14.7)
[2021-08-22 12:32] LABS: BILIRUBIN,TOTAL 0.3 MG/DL (0.1-1.0); BUN/CREATININE RATIO 21; CALCIUM 8.4 MG/DL (8.5-10.1); CARBON DIOXIDE 23 MMOL/L (21-32); CHLORIDE 102 MMOL/L (98-107); CREATININE SERUM 1.74 MG/DL (0.60-1.30); GFR ESTIMATED 41; GLUCOSE 118 MG/DL (70-105); POTASSIUM 4.6 MMOL/L (3.6-5.0); SODIUM 139 MMOL/L (135-145)
[2021-08-22 12:33] LABS: ALANINE AMINOTRANSFERASE 18 U/L (0-55); ALKALINE PHOSPHATASE 50 U/L (40-136); TOTAL PROTEIN 6.4 GM/DL (6.4-8.2)
--- NOTE | 2021-08-22 13:11 | Diagnostic Imaging Report ---
PROCEDURE: CT abdomen and pelvis without contrast. TECHNIQUE: Multiple contiguous axial images were obtained through the abdomen and pelvis without the use of intravenous contrast. Auto Exposure Controls were utilized during the CT exam to meet ALARA standards for radiation dose reduction. INDICATION: Nausea, vomiting, diarrhea, and pain. COMPARISON: None available. FINDINGS: Patchy ground-glass and reticular opacities are identified within the lung bases, right greater than left. Tiny hiatal hernia. The unenhanced liver is unremarkable. The unenhanced spleen is unremarkable. The adrenal glands are unremarkable. The pancreas is unremarkable. The gallbladder is unremarkable. The unenhanced bilateral kidneys and ureters are unremarkable. Fusiform bilobed aneurysmal dilatation of the infrarenal abdominal aorta is present measuring up to 3.5 cm. The appendix is unremarkable. The prostate gland is enlarged. Small fat-containing right internal hernia. The urinary bladder is unremarkable. No bowel obstruction or pneumatosis. No significant adenopathy, free air, or free fluid within the abdomen or pelvis. Scattered osseous degenerative changes without acute osseous abnormality. IMPRESSION: Patchy ground-glass and reticular opacities within the right greater than left lung bases. This may relate to an infectious infiltrate or less likely atelectasis. Recommend correlation for COVID. Mild bilobed aneurysmal dilatation of the infrarenal abdominal aorta. The appendix is unremarkable. Dictated by: Dictated on workstation # [id number]
[2021-08-22] MEDS ORDERED: ONDA4TAB11 PO (13:27)
[2021-08-22 13:30] VITALS: BP 138/72
== END 2021-08-22 13:31 | disposition home or self-care (01) ==
LOC: EDUNIT# 11:43 → ER FS 11:45
DX: U07.1 COVID-19 (principal); R11.2 Nausea with vomiting, unspecified; R19.7 Diarrhea, unspecified; E86.0 Dehydration; N28.9 Disorder of kidney and ureter, unspecified; J44.9 Chronic obstructive pulmonary disease, unspecified; I50.9 Heart failure, unspecified; I25.10 Atherosclerotic heart disease of native coronary artery without angina pectoris; I25.2 Old myocardial infarction; Z95.5 Presence of coronary angioplasty implant and graft; Z87.891 Personal history of nicotine dependence; Z79.82 Long term (current) use of aspirin; Z79.51 Long term (current) use of inhaled steroids; Z79.52 Long term (current) use of systemic steroids; Z79.899 Other long term (current) drug therapy
CPT/HCPCS: 36415; 74176; 80053; 84484; 85025; 85610; 85730; 86141; 87635; 93005; 93041

== ENCOUNTER 2021-08-28 11:01 | Emergency (ER) | payer MEDICARE ==
[~2021-08-28] VITALS: Ht 175.3 cm; Wt 72.6 kg
[~2021-08-28 11:01] MED LIST changes: +ONDA4TAB11 PO
[2021-08-28 11:26] LABS: ABG BASE EXCESS -5.3 MMOL/L (-2.5-2.5); ABG OXYGEN SATURATION 96 % (94-100); ABG PCO2 33 MMHG (35-45); ABG PH 7.38 (7.37-7.43); ABG PO2 75 MMHG (79-93); ABG TCO2 20.2 MMOL/L (21.0-31.0)
[2021-08-28 11:27] LABS: ALLENS TEST YES-POS; INSPIRED O2 ROOM AIR; PATIENT TEMP 36; VENTILATOR NO
[2021-08-28 11:27] LABS: BASOPHILS % (AUTO) 0 % (0-10); EOSINOPHILS % (AUTO) 1 % (0-10); HEMATOCRIT 42 % (40-54); HEMOGLOBIN 13.5 g/dL (13.3-17.7); LYMPHOCYTES # (AUTO) 0.8 10^3/uL (1.0-4.0); LYMPHOCYTES % (AUTO) 12 % (12-44); MEAN CORPUSCULAR HEMOGLOBIN 30 pg (25-34); MEAN CORPUSCULAR HGB CONC 32 g/dL (32-36); MEAN CORPUSCULAR VOLUME 95 fL (80-99); MEAN PLATELET VOLUME 11.7 fL (9.0-12.2); MONOCYTES # (AUTO) 0.5 10^3/uL (0.0-1.0); MONOCYTES % (AUTO) 6 % (0-12); NEUTROPHILS # (AUTO) 5.8 10^3/uL (1.8-7.8); NEUTROPHILS % (AUTO) 81 % (42-75); PLATELET COUNT 197 10^3/uL (130-400); WHITE BLOOD COUNT 7.2 10^3/uL (4.3-11.0)
[2021-08-28] MEDS ORDERED: ONDANSETRON 4 MG/2 ML (SDV) Z0FRAN IVP ONE (11:30)
[2021-08-28] MEDS ORDERED: LACTATED RINGERS 1,000 ML IV SCH (11:30)
--- NOTE | 2021-08-28 11:30 | ED General ---
General Chief Complaint: COVID19 Suspect/Confirmed Stated Complaint: COVID +,SOB,N/V,DIARRHEA Nursing Triage Note: PT TO RM 10 W C/O N/V/D, SOA, AND R SIDED ABD PAIN. PT TESTED COVID + YESTERDAY. A&OX4. Source of Information: Patient, Family Exam Limitations: No Limitations (HOLLEY OLIVARES APRN) History of Present Illness Date Seen by Provider: Aug 28, 2021 Time Seen by Provider: 11:25 Initial Comments 70 y.o. male with past medical history significant for CAD status post four-vessel CABG in 2000, subsequent PCI (2008) at [place], chronic systolic heart failure with reduced ejection fraction (last EF 25-30% here in 05/2021), COPD, hypertension, hyperlipidemia, and CKD to ER with c/o general weakness, nausea, vomiting for 2 weeks. He has some intermittent right flank pain as well that is not present currently. He does have a productive cough but not short of breath any more so than usual. He was seen at [place] emergency room yesterday as he lives in [facility]. He was diagnosed with COVID. He is unvaccinated against COVID. He been sick for about 2 weeks and was not feeling worse but was failing to improve. History of COPD, quit smoking in 2000 and does not wear oxygen at home. Primary care is Dr. Somers, cardiology is Dr. Mcneal at [facility]. Timing/Duration: Other (2 weeks) Severity: Moderate Associated Systoms: Nausea/Vomiting, Weakness (HOLLEY OLIVARES APRN) Allergies and Home Medications Allergies Coded Allergies: No Known Drug Allergies (Unverified , 12/08/18) Patient Home Medication List Home Medication List Reviewed: Yes (HOLLEY OLIVARES APRN) Albuterol Sulfate (Ventolin Hfa) 1 Puff Puff, 1 PUFF INH Q4H, (Reported) Entered as Reported by: LANETTE DONALDSON on 06/08/21 111 Aspirin (Aspirin) 81 Mg Tab.chew, 81 MG PO DAILY, (Reported) Entered as Reported by: LANETTE DONALDSON on 06/08/21 111 Carvedilol (Carvedilol) 12.5 Mg Tablet, 12.5 MG PO BID, (Reported) Entered as Reported by: LANETTE DONALDSON on 06/08/21 1115 Cefdinir (Cefdinir) 300 Mg Capsule, 300 MG PO BID Prescribed by: BITA WOODSON on 06/09/21 1050 Cefuroxime Axetil (Cefuroxime) 250 Mg Tablet, 250 MG PO BID Prescribed by: HOLLEY OLIVARES on 08/28/21 145 Clotrimazole (Clotrimazole) 15 Gm Cream..g., 1 GM TP BID Prescribed by: HOLLEY OLIVARES on 08/28/21 145 Fluticasone/Salmeterol (Advair Hfa 230-21 Mcg Inhaler) 12 Gm Hfa.aer.ad, 1 PUFF PO TID PRN for SHORTNESS OF BREATH, (Reported) Entered as Reported by: LANETTE DONALDSON on 06/08/21 111 Furosemide (Furosemide) 40 Mg Tablet, 20 MG PO Q48H, (Reported) Entered as Reported by: LANETTE DONALDSON on 06/08/21 111 Guaifen/Dextromethorphan/PE (Mucinex Fast-Max Congest-Cough) 180 Ml Liquid, 180 ML PO DAILY PRN for CONGESTION, (Reported) Entered as Reported by: LANETTE DONALDSON on 06/08/21 111 Ipratropium/Albuterol Sulfate (Iprat-Albut 0.5-3(2.5) mg/3 ml) 3 Ml Ampul.neb, 1 VIAL PO Q6H PRN for SHORTNESS OF BREATH, (Reported) Entered as Reported by: LANETTE DONALDSON on 06/08/21 111 Lisinopril (Lisinopril) 5 Mg Tablet, 5 MG PO DAILY, (Reported) Entered as Reported by: LANETTE DONALDSON on 06/08/21 111 Ondansetron (Ondansetron Odt) 4 Mg Tab.rapdis, 4 MG PO Q6H PRN for NAUSEA/VOMITING Prescribed by: HOMER HERNANDEZ on 08/22/21 1327 Ondansetron (Ondansetron Odt) 8 Mg Tab.rapdis, 8 MG PO Q6H PRN for NAUSEA/VOMITING Prescribed by: HOLLEY OLIVARES on 08/28/21 1450 Prednisone (Prednisone) 10 Mg Tab.ds.pk, 10 MG PO DAILY Prescribed by: BITA WOODSON on 06/09/21 1050 Prednisone (Prednisone) 20 Mg Tab, 40 MG PO DAILY Prescribed by: HOLLEY OLIVARES on 08/28/21 1450 Simvastatin (Simvastatin) 80 Mg Tablet, 80 MG PO HS, (Reported) Entered as Reported by: LANETTE DONALDSON on 06/08/21 1115 Tramadol HCl (Ultram) 50 Mg Tablet, 50 MG PO Q6H PRN for PAIN-MILD (1-4) Prescribed by: HOLLEY OLVIARES on 08/28/21 1451 Review of Systems Review of Systems Constitutional: see HPI, malaise, weakness EENTM: see HPI Respiratory: see HPI, cough Cardiovascular: no symptoms reported Gastrointestinal: diarrhea, nausea, vomiting Genitourinary: see HPI, pain (right flank) Musculoskeletal: no symptoms reported Skin: no symptoms reported Psychiatric/Neurological: No Symptoms Reported Hematologic/Lymphatic: No Symptoms Reported Immunological/Allergic: no symptoms reported (HOLLEY OLIVARES APRN) Past Xwyqkou-Iyhsiu-Uwzmjr Hx Patient Social History Tobacco Use?: No Use of E-Cig and/or Vaping dev: No Substance use?: No Alcohol Use?: No (HOLLEY OLIVARES APRN) Immunizations Up To Date First/Initial COVID19 Vaccinat: NONE Second COVID19 Vaccination Gene: NONE Third COVID19 Vaccination Date: NONE COVID19 Vaccine Sea Kayaking Guide: NONE (HOLLEY OLIVARES APRN) Past Medical History Surgery/Hospitalization HX: 2020- 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 quadruple bypass stents COPD CHF CABG Pneumonia, COPD Coronary Artery Disease, Heart Attack Renal Failure Skin Did You Recieve Any Treatments: Yes What Type of Treatment Did You: Surgical Intervention (HOLLEY OLIVARES APRN) Family Medical History Heart Disease, CVA (HOLLEY OLIVARES APRN) Physical Exam Vital Signs Vital Signs - First Documented 08/28/21 11:01 Temp 36.1 Pulse 51 Resp 20 B/P (MAP) 123/72 (89) Pulse Ox 97 O2 Delivery Room Air (SAHRA MATA MD) Vital Signs Capillary Refill : Less Than 3 Seconds (HOLLEY OLIVARES APRN) Height, Weight, BMI Height: 5'9.00" Weight: 180lbs. oz. 81.998523rz; 23.00 BMI Method:Stated General Appearance: No Apparent Distress, WD/WN, Chronically ill (On arrival to ER on room air he is 96 to 97%. Lungs are diminished but clear. Abdomen is slightly tender to the right of the umbilical region and bowel sounds are hypoactive.) Neck: Full Range of Motion, Normal Inspection Respiratory: No Accessory Muscle Use, No Respiratory Distress Cardiovascular: Regular Rate, Rhythm, Normal Peripheral Pulses Gastrointestinal: Normal Bowel Sounds, Non Tender, Soft Extremity: Normal Capillary Refill, Normal Inspection Neurologic/Psychiatric: Alert, Oriented x3 Skin: Normal Color, Warm/Dry, Other (The is concerned about a foul- smelling wound to his right groin. The patient has not mentioned this. On exam he has tinea cruris without induration cellulitis or abscess.) (HOLLEY OLIVARES APRN) Progress/Results/Core Measures Suspected Sepsis SIRS Temperature: Pulse: 51 Respiratory Rate: 20 Laboratory Tests 08/28/21 11:06: White Blood Count 7.2 Blood Pressure 123 /72 Mean: 89 Laboratory Tests 08/28/21 11:06: Creatinine 1.95H, INR Comment 1.2, Platelet Count 197, Total Bilirubin 0.8 (HOLLEY OLIVARES APRN) Results/Orders Lab Results Laboratory Tests Test 08/28/21 11:06 08/28/21 11:15 Range/Units White Blood Count 7.2 4.3-11.0 10^3/uL Red Blood Count 4.47 4.30-5.52 10^6/uL Hemoglobin 13.5 13.3-17.7 g/dL Hematocrit 42 40-54 % Mean Corpuscular Volume 95 80-99 fL Mean Corpuscular Hemoglobin 30 25-34 pg Mean Corpuscular Hemoglobin Concent 32 32-36 g/dL Red Cell Distribution Width 13.3 10.0-14.5 % Platelet Count 197 130-400 10^3/uL Mean Platelet Volume 11.7 9.0-12.2 fL Immature Granulocyte % (Auto) 1 % Neutrophils (%) (Auto) 81 H 42-75 % Lymphocytes (%) (Auto) 12 12-44 % Monocytes (%) (Auto) 6 0-12 % Eosinophils (%) (Auto) 1 0-10 % Basophils (%) (Auto) 0 0-10 % Neutrophils # (Auto) 5.8 1.8-7.8 10^3/uL Lymphocytes # (Auto) 0.8 L 1.0-4.0 10^3/uL Monocytes # (Auto) 0.5 0.0-1.0 10^3/uL Eosinophils # (Auto) 0.0 0.0-0.3 10^3/uL Basophils # (Auto) 0.0 0.0-0.1 10^3/uL Immature Granulocyte # (Auto) 0.1 0.0-0.1 10^3/uL Prothrombin Time 15.9 H 12.2-14.7 SEC INR Comment 1.2 0.8-1.4 Sodium Level 142 135-145 MMOL/L Potassium Level 5.2 H 3.6-5.0 MMOL/L Chloride Level 109 H 98-107 MMOL/L Carbon Dioxide Level 21 21-32 MMOL/L Anion Gap 12 5-14 MMOL/L Blood Urea Nitrogen 63 H 7-18 MG/DL Creatinine 1.95 H 0.60-1.30 MG/DL Estimat Glomerular Filtration Rate 36 BUN/Creatinine Ratio 32 Glucose Level 159 H 70-105 MG/DL Calcium Level 9.0 8.5-10.1 MG/DL Corrected Calcium 9.0 8.5-10.1 MG/DL Magnesium Level 2.5 H 1.6-2.4 MG/DL Total Bilirubin 0.8 0.1-1.0 MG/DL Aspartate Amino Transf (AST/SGOT) 42 H 5-34 U/L Alanine Aminotransferase (ALT/SGPT) 22 0-55 U/L Alkaline Phosphatase 47 40-136 U/L C-Reactive Protein High Sensitivity 4.94 H 0.00-0.50 MG/DL Total Protein 7.3 6.4-8.2 GM/DL Albumin 4.0 3.2-4.5 GM/DL Procalcitonin 0.44 H <0.10 NG/ML Blood Gas Puncture Site L RAD Blood Gas Patient Temperature 36 Arterial Blood pH 7.38 7.37-7.43 Arterial Blood Partial Pressure CO2 33 L 35-45 MMHG Arterial Blood Partial Pressure O2 75 L 79-93 MMHG Arterial Blood HCO3 19 L 23-27 MMOL/L Arterial Blood Total CO2 20.2 L 21.0-31.0 MMOL/L Arterial Blood Oxygen Saturation 96 94-100 % Arterial Blood Base Excess -5.3 L -2.5-2.5 MMOL/L Anibal Test YES-POS Blood Gas Ventilator Setting NO Blood Gas Inspired Oxygen ROOM AIR (SAHRA MATA MD) Medications Given in ED Current Medications Medications Dose Ordered Sig/Sadie Route Start Time Stop Time Status Last Admin Dose Admin Ceftriaxone Sodium/Dextrose 50 ml @ 100 mls/hr ONCE ONCE IV 08/28/21 12:45 08/28/21 13:14 DC 08/28/21 12:49 100 MLS/HR Ketorolac Tromethamine 15 mg ONCE ONCE IVP 08/28/21 13:45 08/28/21 13:46 DC 08/28/21 13:44 15 MG Methylprednisolone Sodium Succinate 80 mg ONCE ONCE IV 08/28/21 12:45 08/28/21 12:46 DC 08/28/21 12:46 80 MG Ondansetron HCl 8 mg ONCE ONCE IVP 08/28/21 11:30 08/28/21 11:31 DC 08/28/21 11:23 8 MG (SAHRA MATA MD) Vital Signs/I&O 08/28/21 08/28/21 11:01 15:15 Temp 36.1 Pulse 51 62 Resp 20 20 B/P (MAP) 123/72 (89) 109/45 Pulse Ox 97 98 O2 Delivery Room Air Room Air (SAHRA MATA MD) Vital Signs/I&O Capillary Refill : Less Than 3 Seconds (HOLLEY OLIVARES APRN) Blood Pressure Mean: 89 Diagnostic Imaging Diagonstic Imaging: Xray Comments NAME: RUBY OCHOA [facility] REC#: [id number] PT STATUS: REG ER : 1950 PHYSICIAN: HOLLEY OLIVARES APRN ADMIT DATE: 08/28/21/ER Draft Date of Exam:08/28/21 CHEST 1 VIEW, AP/PA ONLY INDICATION: COVID. TECHNIQUE: Single view chest 11:13 AM. CORRELATION STUDY: 06/09/2021 FINDINGS: Poststernotomy change. The heart size is enlarged. Vasculature overall appears slightly increased. Asymmetric pulmonary parenchymal opacity in the left mid lung field. Question minimal opacities in the right lung base. Question very faint nodule in the lateral left mid to upper lung field. IMPRESSION: 1. Poststernotomy changes. Cardiac enlargement and borderline vasculature. 2. Minimal infiltrate-like opacities in the left mid lung field as well as likely at the right lung base 3. Questionable pulmonary nodule in the left mid to upper lung field. Would recommend short-term follow-up repeat imaging after the patient's acute symptoms have improved for follow-up. Dictated on workstation # [id number] Dict: 08/28/21 1138 Trans: 08/28/21 1144 [facility] [id number] Interpreted by: FABY DENNIS DO Electronically signed by: NAME: RUBY OCHOA [facility] REC#: [id number] PT STATUS: REG ER : 1950 PHYSICIAN: HOLLEY OLIVARES APRN ADMIT DATE: 08/28/21/ER Draft Date of Exam:08/28/21 CT ABD/PELVIS WO(KIDNEY STONE) INDICATION: Right flank pain, nausea and vomiting, COVID positive. TECHNIQUE: Multiple contiguous axial images were obtained through the abdomen and pelvis without the use of intravenous contrast. Auto Exposure Controls were utilized during the CT exam to meet ALARA standards for radiation dose reduction. There is comparison to prior study of 08/22/2021. FINDINGS: The visualized portions of the lung bases show some infiltrates and subpleural stranding, similar to the prior study, right greater than left. There is no pleural fluid or free intraperitoneal air. The liver shows no focal lesion without contrast. Gallbladder appears unremarkable. The spleen, adrenals, and pancreas appear normal. The kidneys bilaterally are unremarkable. There is no retroperitoneal mass or adenopathy. There is a minimal amount of free fluid in the pelvis. There is no sign of bowel obstruction. There is some mild bowel wall thickening in the right colon. There is a nonruptured infrarenal abdominal aortic aneurysm measuring 3.8 x 3.4 cm. IMPRESSION: No evidence of urinary tract stone or hydronephrosis. There is some mild bowel wall thickening involving the right colon, question colitis. There is a small amount of free fluid in the pelvis, which is new compared to the prior study. There is a nonruptured infrarenal abdominal aortic aneurysm measuring 3.8 x 3.4 cm. Dictated on workstation # [id number] Dict: 08/28/21 1440 Trans: 08/28/21 1452 [id number] Interpreted by: TRUMAN POPE MD Electronically signed by: (HOLLEY OLIVARES APRN) Departure Communication (Admissions) 1134-He was at [place] last week with a positive Covid test. He had a CT abdomen pelvis done thenshowing a normal appendix no acute abnormality other than some infiltrates in the lung bases. 1506-he is pain-free after 15 mg of Toradol. His CT does show some arthritic changes of the right side of his lumbar spine as well as some questionable colitis. He states he feels pain-free at this time. I also clarified with him the onset of his Covid symptoms. He is certain that it is beyond 10 days and has been at least 2 weeks. As such she would not qualify for monoclonal antibody infusion. (HOLLEY OLIVARES APRN) Impression Primary Impression: COVID-19 Additional Impressions: Tinea cruris COPD exacerbation Osteoarthritis of lumbar spine Disposition: 01 HOME, SELF-CARE Condition: Stable Departure-Patient Inst. Decision time for Depature: 12:56 (HOLLEY OLIVARES APRN) Referrals: SELFSONU MD (PCP/Family) Primary Care Physician Patient Instructions: COVID-19 ED Add. Discharge Instructions: 1. Apply the cream twice daily for 2 weeks to the right groin in the area of redness. Take the oral steroids oral antibiotics as directed and use the oral nausea medication as needed for any recurrent nausea. All discharge instructions reviewed with patient and/or family. Voiced understanding. Scripts Cefdinir (Cefdinir) 125 Mg/5 Ml Susp.recon 12 ML PO BID for 5 Days, #120 ML 0 Refills Prov: SAHRA MATA MD 08/28/21 Tramadol HCl (Ultram) 50 Mg Tablet 50 MG PO Q6H PRN for PAIN-MILD (1-4), #10 TAB . Prov: HOLLEY OLIVARES APRN 08/28/21 Clotrimazole (Clotrimazole) 15 Gm Cream..g. 1 GM TP BID for 14 Days, #2 EA . Prov: HOLLEY OLIVARES APRN 08/28/21 Ondansetron (Ondansetron Odt) 8 Mg Tab.rapdis 8 MG PO Q6H PRN for NAUSEA/VOMITING, #14 TAB . Prov: HOLLEY OLIVARES APRN 08/28/21 Prednisone (Prednisone) 20 Mg Tab 40 MG PO DAILY, #6 TAB 0 Refills . Prov: HOLLEY OLIVARES APRN 08/28/21 Images Torso/Trunk 1 - Tenderness (HOLLEY OLIVARES APRN) HOLLEY OLIVARES APRN Aug 28, 2021 11:30 SAHRA MATA MD Aug 28, 2021 17:15
[2021-08-28 11:37] LABS: POTASSIUM 5.2 MMOL/L (3.6-5.0)
[2021-08-28 11:39] LABS: TOTAL PROTEIN 7.3 GM/DL (6.4-8.2)
[2021-08-28 11:41] LABS: BILIRUBIN,TOTAL 0.8 MG/DL (0.1-1.0)
[2021-08-28 11:43] LABS: CREATININE SERUM 1.95 MG/DL (0.60-1.30)
--- NOTE | 2021-08-28 11:44 | Diagnostic Imaging Report ---
INDICATION: COVID. TECHNIQUE: Single view chest 11:13 AM. CORRELATION STUDY: 06/09/2021 FINDINGS: Poststernotomy change. The heart size is enlarged. Vasculature overall appears slightly increased. Asymmetric pulmonary parenchymal opacity in the left mid lung field. Question minimal opacities in the right lung base. Question very faint nodule in the lateral left mid to upper lung field. IMPRESSION: 1. Poststernotomy changes. Cardiac enlargement and borderline vasculature. 2. Minimal infiltrate-like opacities in the left mid lung field as well as likely at the right lung base 3. Questionable pulmonary nodule in the left mid to upper lung field. Would recommend short-term follow-up repeat imaging after the patient's acute symptoms have improved for follow-up. Dictated by: Dictated on workstation # [id number]
[2021-08-28 11:46] LABS: MAGNESIUM 2.5 MG/DL (1.6-2.4)
[2021-08-28 11:58] LABS: INR 1.2 (0.8-1.4); PROTHROMBIN TIME PATIENT 15.9 SEC (12.2-14.7)
[2021-08-28] MEDS ORDERED: cefTRIAXone 1 GM PRE-MIX 50 ML IV ONE (12:45)
[2021-08-28] MEDS ORDERED: NS IV 500 ML 500 ML IV SCH (12:45)
[2021-08-28] MEDS ORDERED: methylPREDNISolone 40 MG/ML (Solu-MEDROL) VIAL IV ONE (12:45)
[2021-08-28] MEDS ORDERED: ONDA8TAB13 PO ×2 (12:51→14:50)
[2021-08-28] MEDS ORDERED: CLOT15CR28 TP ×2 (12:51→14:50)
[2021-08-28] MEDS ORDERED: PRD20T PO ×2 (12:51→14:50)
[2021-08-28] MEDS ORDERED: CEFU250T80 PO ×2 (12:51→14:50)
[2021-08-28] MEDS ORDERED: KETOROLAC 30 MG/ML VIAL IVP ONE (13:45)
[2021-08-28] MEDS ORDERED: TRAM-42 PO (14:50)
--- NOTE | 2021-08-28 14:53 | Diagnostic Imaging Report ---
INDICATION: Right flank pain, nausea and vomiting, COVID positive. TECHNIQUE: Multiple contiguous axial images were obtained through the abdomen and pelvis without the use of intravenous contrast. Auto Exposure Controls were utilized during the CT exam to meet ALARA standards for radiation dose reduction. There is comparison to prior study of 08/22/2021. FINDINGS: The visualized portions of the lung bases show some infiltrates and subpleural stranding, similar to the prior study, right greater than left. There is no pleural fluid or free intraperitoneal air. The liver shows no focal lesion without contrast. Gallbladder appears unremarkable. The spleen, adrenals, and pancreas appear normal. The kidneys bilaterally are unremarkable. There is no retroperitoneal mass or adenopathy. There is a minimal amount of free fluid in the pelvis. There is no sign of bowel obstruction. There is some mild bowel wall thickening in the right colon. There is a nonruptured infrarenal abdominal aortic aneurysm measuring 3.8 x 3.4 cm. IMPRESSION: No evidence of urinary tract stone or hydronephrosis. There is some mild bowel wall thickening involving the right colon, question colitis. There is a small amount of free fluid in the pelvis, which is new compared to the prior study. There is a nonruptured infrarenal abdominal aortic aneurysm measuring 3.8 x 3.4 cm. Dictated by: Dictated on workstation # [id number]
[2021-08-28 15:15] VITALS: BP 109/45
[2021-08-28] MEDS ORDERED: CEFD125S3 PO (17:15)
== END 2021-08-28 15:15 | disposition home or self-care (01) ==
LOC: EDUNIT# 11:01 → ER 11:02
DX: U07.1 COVID-19 (principal); B35.6 Tinea cruris; J44.1 Chronic obstructive pulmonary disease with (acute) exacerbation; M46.96 Unspecified inflammatory spondylopathy, lumbar region; I25.2 Old myocardial infarction; I50.9 Heart failure, unspecified; I11.0 Hypertensive heart disease with heart failure; I25.10 Atherosclerotic heart disease of native coronary artery without angina pectoris; Z79.899 Other long term (current) drug therapy; Z79.82 Long term (current) use of aspirin
CPT/HCPCS: 36415; 71045; 74176; 80053; 82805; 83735; 84145; 85025; 85610; 86141; 87040

== ENCOUNTER → 2022-05-10 | Outpatient (RCR) | payer MEDICARE ==
[~2022-05-10] MED LIST changes: +CEFD125S3 PO; +CEFU250T80 PO; +CLOT15CR28 TP; +GUAI180L11 PO; -GUAI180L12 PO; +ONDA8TAB13 PO; +PRD20T PO; +TRAM-42 PO
== END | disposition home or self-care (01) ==
LOC: ONC 04-26 09:47
PROVIDERS: ATTEND Radiology Radiation Oncology
DX: Z51.0 Encounter for antineoplastic radiation therapy (principal); C44.219 Basal cell carcinoma of skin of left ear and external auricular canal; C44.612 Basal cell carcinoma of skin of right upper limb, including shoulder; E78.00 Pure hypercholesterolemia, unspecified; J44.9 Chronic obstructive pulmonary disease, unspecified
CPT/HCPCS: 77290; 77334; 99205

== ENCOUNTER → 2022-05-24 | Outpatient (CLI) | payer MEDICARE ==
--- NOTE | 2022-05-24 15:31 | Diagnostic Imaging Report ---
PROCEDURE: CT chest without contrast. TECHNIQUE: Multiple contiguous axial images were obtained through the chest without the use of intravenous contrast. Auto Exposure Controls were utilized during the CT exam to meet ALARA standards for radiation dose reduction. INDICATION: 72-year-old male, left lung cancer, on radiation therapy, restaging. CORRELATION STUDY: None FINDINGS: Poststernotomy changes along with coronary artery bypass. Heart size enlarged. No significant pericardial effusion. Thoracic aortic contour unremarkable. A few small scattered shotty mediastinal lymph nodes. No pathologically enlarged lymphadenopathy on this noncontrast study. EG junction with very small esophageal hernia. Lung nayak demonstrated a approximately 16 x 13 x 12 mm spiculated mass left upper lobe. There is extension and adjacent pleural thickening. Adjacent fiducial markers are present. Mild bronchial wall thickening. Faint semisolid nodule posterior lateral right lower lobe, 5 mm (image 89 series 3). Visualized portion upper abdomen demonstrates aneurysmal dilatation of the partially visualized, abdominal aorta at 3.8 cm. IMPRESSION: 1. 1.6 cm spiculated mass left upper lobe compatible with primary lung neoplasm. 2. Small indeterminate nodule right lower lobe. Dictated by: Dictated on workstation # [id number]
== END ==
LOC: RAD 11:45
PROVIDERS: ATTEND Radiology Radiation Oncology
DX: C34.12 Malignant neoplasm of upper lobe, left bronchus or lung (principal); Z92.3 Personal history of irradiation
CPT/HCPCS: 71250

== ENCOUNTER → 2022-06-09 | Outpatient (RCR) | payer MEDICARE | END | disposition home or self-care (01) | LOC: ONC 05-12 10:45 | PROVIDERS: ATTEND Radiology Radiation Oncology | DX: Z51.0 Encounter for antineoplastic radiation therapy (principal); C44.219 Basal cell carcinoma of skin of left ear and external auricular canal; C44.612 Basal cell carcinoma of skin of right upper limb, including shoulder; E78.00 Pure hypercholesterolemia, unspecified; J44.9 Chronic obstructive pulmonary disease, unspecified | CPT/HCPCS: 77280; 77290; 77295; 77300; 77307; 77332; 77334; 77336 ==

== ENCOUNTER 2022-06-14 08:37 | Outpatient (RCR) | payer MEDICARE | END 2022-07-10 | disposition home or self-care (01) | LOC: ONC 08:37 | PROVIDERS: ATTEND Radiology Radiation Oncology | DX: Z51.0 Encounter for antineoplastic radiation therapy (principal); C44.219 Basal cell carcinoma of skin of left ear and external auricular canal; C44.612 Basal cell carcinoma of skin of right upper limb, including shoulder | CPT/HCPCS: 77336 ==

== ENCOUNTER → 2022-07-14 | Outpatient (CLI) | payer MEDICARE ==
--- NOTE | 2022-07-14 12:15 | Diagnostic Imaging Report ---
PROCEDURE: CT chest without contrast. TECHNIQUE: Multiple contiguous axial images were obtained through the chest without the use of intravenous contrast. Auto Exposure Controls were utilized during the CT exam to meet ALARA standards for radiation dose reduction. INDICATION: Pulmonary nodule and COPD. Compared with study 05/24/2022 FINDINGS: A spiculated solid mass in the left upper lobe previously noted can no longer be clearly identified or measured. Additional marker near that prior structure is present and there is regional airspace density. Bronchograms as well as some marginal groundglass attenuation. The interval changes are presumed to reflect a postradiation pneumonitis, area of density within this process may reflect the residual partially obscured treated tumor at 9 mm AP previously 13 mm, this however could not be confirmed. A lymph node precarinal measuring 1.5 x 1.2 cm not changed, smaller left lower paratracheal and subaortic mediastinal lymph nodes unchanged. No new mass. No adverse interval development. No right lung lesion. No effusion or pneumothorax. Coronary and aortic atherosclerotic vascular calcifications with prior sternotomy stable. IMPRESSION: The left spiculated upper lobe lung mass is not clearly visualized, obscured by a new regional airspace and groundglass attenuation presumptively on a postradiation basis. Some borderline mediastinal lymph nodes stable. No adverse development. No new mass. Dictated by: Dictated on workstation # [id number]
== END ==
LOC: RAD 10:15
DX: R91.1 Solitary pulmonary nodule (principal); J44.9 Chronic obstructive pulmonary disease, unspecified
CPT/HCPCS: 71250

== ENCOUNTER 2022-07-22 08:37 | Outpatient (RCR) | payer MEDICARE | END 2022-08-10 | disposition home or self-care (01) | LOC: ONC 08:37 | PROVIDERS: ATTEND Radiology Radiation Oncology | DX: C44.219 Basal cell carcinoma of skin of left ear and external auricular canal (principal); C44.612 Basal cell carcinoma of skin of right upper limb, including shoulder; E78.00 Pure hypercholesterolemia, unspecified; J44.9 Chronic obstructive pulmonary disease, unspecified | CPT/HCPCS: 99213 ==

== ENCOUNTER → 2022-12-24 | Outpatient (CLI) | payer MEDICARE ==
[~2022-12-24] MED LIST changes: +ACYC200O10 PO; -ACYC200O4 PO; +SULF473O12 PO; -SULF473O9 PO
--- NOTE | 2022-12-24 10:41 | Diagnostic Imaging Report ---
EXAMINATION: CT chest without contrast. TECHNIQUE: Multiple contiguous axial images were obtained through the chest without the use of intravenous contrast. All CT scans use one or more of the following dose optimizing techniques: automated exposure control, MA and/or KvP adjustment based on patient size and exam type or iterative reconstruction. HISTORY: Left-sided lung cancer. COMPARISON: 07/14/2022. 05/24/2022. FINDINGS: The heart size is prominent with post-CABG changes. No pericardial effusion is present. There is calcified aortic and coronary atherosclerotic plaque without aneurysm. Stable mildly prominent mediastinal and left hilar lymph nodes. There is improved aeration within the left upper lobe compared to the prior exam. The previously visualized nodule is better seen on today's exam measuring 1.3 x 1.[address] chest from 05/24/2022 this measured 1.6 x 1.3 cm. A new nodule is seen in the left lower lobe measuring 0.6 cm. No central endobronchial obstructing lesions are identified. There is no pleural effusion or pneumothorax. The osseous structures demonstrate no acute abnormalities. Limited views of the upper abdominal structures demonstrate no acute abnormalities. Both adrenal glands are unremarkable. IMPRESSION: 1. Interval improved aeration in the left upper lobe with overall decrease in size in the spiculated nodule within the left upper lobe now measuring up to 1.3 cm. Recommend continued follow-up, as indicated. 2. New nodule in the left lower lobe measuring 0.6 cm. Recommend continued attention on follow-up. 3. Stable mildly prominent mediastinal and left hilar lymph nodes. No new lymphadenopathy. 4. Cardiomegaly with post-CABG changes. Dictated by: Dictated on workstation # [id number]
== END ==
LOC: RAD 07:43
PROVIDERS: ATTEND Radiology Radiation Oncology
DX: I51.7 Cardiomegaly (principal); R91.8 Other nonspecific abnormal finding of lung field; C34.12 Malignant neoplasm of upper lobe, left bronchus or lung; R59.0 Localized enlarged lymph nodes; Z95.1 Presence of aortocoronary bypass graft
CPT/HCPCS: 71250